=== PATIENT | female | born 1965 | race Caucasian/White ===

== ENCOUNTER 2018-03-31 08:03 | Inpatient (IN) | payer MEDICAID ==
[~2018-03-31] VITALS: Ht 167.6 cm; Wt 73.0 kg
[2018-03-31] VITALS (28 sets, daily range): BP systolic 65–124; BP diastolic 33–91
[~2018-03-31 08:03] MED LIST: BACTRIM DS TAB1 EAC1 PO; BOOST PLUS237 ML PO; DAKIN'S473 M1 TOP; DIFLUCAN200 MG PO; HEPARIN 1,100 UNIT/1 SUBQ; HEPARIN SO5000 UNIT2 SUBQ; LIORESAL 10 MG10 MG PO; OMEGA-31000 M1 PO; ORAZINC220 MG PO; PREMARIN0.3 MG PO; PRENATAL VITAM1 EACH PO; PROTONIX40 M1 PO; PROZAC20 MG PO; PROZAC40 MG PO; REGLAN 10 MG TA10 MG PO; RENAGEL800 MG PO; ROCEPHIN 11 GM/1001 IV; SILVADENE20 GM TOP; TYLENOL325 MG PO; VANCOMYCIN1.25 GM/21 IVPB; VITAMINC500 PO; ZINC SULFATE 2220 M1 PO; ZOSYN 3.373.375 GM/1 PO; ZOSYN 3.3753.375 GM IVPB
[2018-03-31 08:25] LABS: URINE BILIRUBIN NEGATIVE (Negative); URINE BLOOD 1+ (Negative); URINE CLARITY CLOUDY; URINE COLOR YELLOW; URINE GLUCOSE-RANDOM NEGATIVE (Negative); URINE KETONES NEGATIVE (Negative); URINE LEUKOCYTES-REFLEX 3+ (Negative); URINE NITRITE-REFLEX NEGATIVE (Negative); URINE PROTEIN 1+ (Negative); URINE UROBILINOGEN 0.2 E.U./dl (0.2-1.0)
[2018-03-31] MEDS ORDERED: LIORESAL 10 MG10 MG PO (08:25)
[2018-03-31] MEDS ORDERED: LASIX 20 MG TAB20 MG PO (08:26)
[2018-03-31] MEDS ORDERED: SEROQUEL 25 MG25 M1 PO (08:26)
[2018-03-31 08:32] LABS: BACTERIA-REFLEX >30 Many /HPF (None Seen)
[2018-03-31 08:33] LABS: HYALINE CASTS 0-3 Few /LPF (None Seen); URINE WBC-REFLEX >25 Many /HPF (0-5); WBC CLUMPS Moderate (None Seen)
[2018-03-31 08:34] LABS: SQUAMOUS 0-3 Few /LPF (0-3)
[2018-03-31 08:35] LABS: CRYSTALS None Seen /LPF (None Seen); MUCUS None Seen strn/LPF (None Seen); URINE RBC 0-2 Rare /HPF (0-2)
[2018-03-31 08:57] LABS: HEMOGLOBIN 13.3 gm/dL (12.0-15.0); MCH 27.9 pg (26.0-34.0); MCHC 30.2 g/dL (28.0-37.0); MCV 92.4 fL (80.0-100.0); MPV 11.8 fl. (7.2-11.1); NUCLEATED RBCS 0 /100WBC; RBC 4.77 mil/uL (4.20-5.00); RDW-CV 16.5 % (10.5-14.5)
[2018-03-31 09:00] LABS: INR 1.3; PROTIME 12.7 Seconds (9.20-11.50)
[2018-03-31 09:04] LABS: ANION GAP 11 mmol/L (7-16); BUN 68 mg/dL (7-18); CHLORIDE 129 mmol/L (98-107); CO2 26 mmol/L (21-32); CREATININE 2.7 mg/dL (0.6-1.3); GLUCOSE 140 mg/dL (70-99); POTASSIUM 3.4 mmol/L (3.5-5.1)
[2018-03-31 09:04] LABS: BE -1.9 mmol/L (-2 to +3); HCO3 21.3 mmol/L (22.0-26.0); PO2 66.4 mmHg (75.0-100.0); pH 7.442 (7.340-7.450)
[2018-03-31 09:08] LABS: SODIUM 166 mmol/L (136-145)
[2018-03-31 09:20] LABS: ALKALINE PHOSPHATASE 159 U/L (46-116); LIPASE 352 U/L (73-393); NT-PRO BRAIN NAT PEPTIDE 561 pg/mL (<300); SGOT 51 U/L (15-37); SGPT 77 U/L (30-65); TOTAL BILIRUBIN 1.1 mg/dL (<0.1-1.0); TOTAL PROTEIN 8.1 g/dL (6.4-8.2); TROPONIN-I LEVEL <0.06 ng/mL (<0.06)
[2018-03-31 10:05] LABS: ABSOLUTE EOSINOPHILS 0.4 thou/uL (0.0-0.7); ABSOLUTE LYMPHOCYTES 4.4 thou/uL (0.8-5.3); ABSOLUTE MONOCYTES 0.6 thou/uL (0.0-1.2); ABSOLUTE NEUTROPHILS 13.7 thou/uL (1.6-8.1)
[2018-03-31 10:10] LABS: ANISOCYTOSIS Occasional; PLATELET ESTIMATE ADEQUATE
[2018-03-31 10:13] LABS: CLUMPED PLTS RARE; PLATELET COUNT* 182 thou/uL (150-400)
[2018-03-31 12:14] LABS: MAGNESIUM 2.4 mg/dL (1.8-2.4); PHOSPHORUS* 3.7 mg/dL (2.5-4.9)
[2018-04-01] VITALS (18 sets, daily range): BP systolic 87–119; BP diastolic 42–74
[2018-04-01 04:25] LABS: ABSOLUTE BASOPHILS 0.1 thou/uL (0.0-0.2); ABSOLUTE EOSINOPHILS 0.3 thou/uL (0.0-0.7); ABSOLUTE LYMPHOCYTES 4.1 thou/uL (0.8-5.3); ABSOLUTE MONOCYTES 0.7 thou/uL (0.0-1.2); ABSOLUTE NEUTROPHILS 15.2 thou/uL (1.6-8.1); BASOPHILS 0.4 %; EOSINOPHILS 1.6 %; HEMATOCRIT 32.3 % (37.0-47.0); LYMPHOCYTES 20.1 %; MCH 28.2 pg (26.0-34.0); MONOCYTES 3.2 %; MPV 11.2 fl. (7.2-11.1); NUCLEATED RBCS 0 /100WBC; PLATELET COUNT* 151 thou/uL (150-400); POLYS 74.7 %; RBC 3.55 mil/uL (4.20-5.00); RDW-CV 16.3 % (10.5-14.5); WBC 20.4 thou/uL (4.0-11.0)
[2018-04-01 04:34] LABS: CALCIUM 7.7 mg/dL (8.5-10.1); CREATININE 2.1 mg/dL (0.6-1.3)
[2018-04-01 04:40] LABS: CALCIUM 7.7 mg/dL (8.5-10.1); CREATININE 2.1 mg/dL (0.6-1.3)
[2018-04-01 05:01] LABS: ALBUMIN 1.4 g/dL (3.4-5.0); MAGNESIUM 1.7 mg/dL (1.8-2.4); PHOSPHORUS* 2.3 mg/dL (2.5-4.9)
--- NOTE | 2018-04-01 10:24 | EKG ---
[place] [address] ELECTROCARDIOGRAM REPORT Name: PADMINIJAIME Room: [address] ADM IN .R.#: [id number] Admission: 03/31/18 Attend Phys: Jose Cheng MD Discharge: Date of : 67 Report #: [id number] THIS REPORT FOR: //name// [facility] ED Test Date: 2018-03-31 Test Time: 08:49:46 Pat Name: JAIME WASHINGTON Department: Room: [facility] Gender: Rn Immunology: Corbin FERRER : 1965 Requested By: Justice Mason Order Number: [id number] MD: Rodrick Ren Measurements Intervals [place] Rate: 97 P: 28 ME: 86 QRS: 26 QRSD: 90 T: QT: 364 QTc: 463 Interpretive Statements Sinus rhythm Short ME interval Consider RVH or PMI w/ secondary repol abnrm Repol abnrm, severe global ischemia (LM/MVD) Compared to ECG 06/27/2014 21:27:32 Possible ischemia now present Electronically Signed On 04-01-2018 10:24:07 CDT by Rodrick Ren [email or web address] <ELECTRONICALLY SIGNED> By: Rodrick Ren MD, FAC 04/01/18 1024 0849 0849 Rodrick Ren MD, [facility] /EPI
[2018-04-02] VITALS (8 sets, daily range): BP systolic 79–119; BP diastolic 52–69
[2018-04-02 04:44] LABS: ABSOLUTE EOSINOPHILS 0.4 thou/uL (0.0-0.7); ABSOLUTE LYMPHOCYTES 3.2 thou/uL (0.8-5.3); ABSOLUTE MONOCYTES 0.3 thou/uL (0.0-1.2); ABSOLUTE NEUTROPHILS 8.6 thou/uL (1.6-8.1); BASOPHILS 0.4 %; EOSINOPHILS 3.5 %; HEMATOCRIT 28.8 % (37.0-47.0); HEMOGLOBIN 9.2 gm/dL (12.0-15.0); LYMPHOCYTES 25.1 %; MCH 28.7 pg (26.0-34.0); MCHC 31.8 g/dL (28.0-37.0); MCV 90.3 fL (80.0-100.0); MONOCYTES 2.6 %; MPV 11.1 fl. (7.2-11.1); NUCLEATED RBCS 0 /100WBC; PLATELET COUNT* 114 thou/uL (150-400); POLYS 68.4 %; RBC 3.19 mil/uL (4.20-5.00); RDW-CV 16.1 % (10.5-14.5); WBC 12.6 thou/uL (4.0-11.0)
[2018-04-02 05:05] LABS: ALBUMIN 1.3 g/dL (3.4-5.0); CREATININE 1.9 mg/dL (0.6-1.3); POTASSIUM 3.1 mmol/L (3.5-5.1); TOTAL BILIRUBIN 0.9 mg/dL (<0.1-1.0)
[2018-04-02 05:41] LABS: PREALBUMIN 11.7 mg/dL (18.0-35.7)
[2018-04-02 05:42] LABS: ALBUMIN 1.3 g/dL (3.4-5.0); CALCIUM 7.6 mg/dL (8.5-10.1); CREATININE 1.8 mg/dL (0.6-1.3); MAGNESIUM 1.7 mg/dL (1.8-2.4); PHOSPHORUS* 3.1 mg/dL (2.5-4.9); POTASSIUM 3.2 mmol/L (3.5-5.1)
[2018-04-03] VITALS (8 sets, daily range): BP systolic 82–100; BP diastolic 51–65
[2018-04-03 06:24] LABS: ABSOLUTE EOSINOPHILS 0.4 thou/uL (0.0-0.7); ABSOLUTE LYMPHOCYTES 2.6 thou/uL (0.8-5.3); ABSOLUTE MONOCYTES 0.4 thou/uL (0.0-1.2); ABSOLUTE NEUTROPHILS 7.3 thou/uL (1.6-8.1); BASOPHILS 0.4 %; EOSINOPHILS 3.9 %; HEMATOCRIT 31.4 % (37.0-47.0); LYMPHOCYTES 24.5 %; MCH 28.7 pg (26.0-34.0); MCHC 31.9 g/dL (28.0-37.0); MCV 89.7 fL (80.0-100.0); MONOCYTES 3.8 %; MPV 11.3 fl. (7.2-11.1); NUCLEATED RBCS 0 /100WBC; PLATELET COUNT* 134 thou/uL (150-400); POLYS 67.4 %; RDW-CV 16.2 % (10.5-14.5); WBC 10.8 thou/uL (4.0-11.0)
[2018-04-03 06:31] LABS: PREALBUMIN 11.7 mg/dL (18.0-35.7)
[2018-04-03 06:32] LABS: ALBUMIN 1.3 g/dL (3.4-5.0); CALCIUM 8.1 mg/dL (8.5-10.1); CREATININE 1.8 mg/dL (0.6-1.3); POTASSIUM 3.9 mmol/L (3.5-5.1); TOTAL BILIRUBIN 0.9 mg/dL (<0.1-1.0); TOTAL PROTEIN 6.4 g/dL (6.4-8.2)
[2018-04-04 00:08] VITALS: BP 142/66
[2018-04-04 03:52] LABS: ABSOLUTE BASOPHILS 0.1 thou/uL (0.0-0.2); ABSOLUTE EOSINOPHILS 0.5 thou/uL (0.0-0.7); ABSOLUTE LYMPHOCYTES 3.3 thou/uL (0.8-5.3); ABSOLUTE MONOCYTES 0.5 thou/uL (0.0-1.2); ABSOLUTE NEUTROPHILS 8.6 thou/uL (1.6-8.1); BASOPHILS 0.7 %; HEMATOCRIT 29.5 % (37.0-47.0); HEMOGLOBIN 9.4 gm/dL (12.0-15.0); LYMPHOCYTES 25.6 %; MCH 28.4 pg (26.0-34.0); MCHC 31.8 g/dL (28.0-37.0); MCV 89.4 fL (80.0-100.0); MONOCYTES 3.8 %; MPV 10.8 fl. (7.2-11.1); NUCLEATED RBCS 0 /100WBC; PLATELET COUNT* 167 thou/uL (150-400); POLYS 65.9 %; RDW-CV 15.9 % (10.5-14.5)
[2018-04-04 04:16] VITALS: BP 90/57
[2018-04-04 04:26] LABS: ALBUMIN 1.3 g/dL (3.4-5.0); CALCIUM 7.6 mg/dL (8.5-10.1); POTASSIUM 3.3 mmol/L (3.5-5.1); TOTAL BILIRUBIN 0.7 mg/dL (<0.1-1.0); TOTAL PROTEIN 6.4 g/dL (6.4-8.2)
[2018-04-04 08:00] VITALS: BP 98/64
[2018-04-04 16:11] VITALS: BP 80/34
[2018-04-04 20:17] VITALS: BP 96/54
[2018-04-05] VITALS (7 sets, daily range): BP systolic 91–121; BP diastolic 44–64
[2018-04-05 04:42] LABS: HEMATOCRIT 27.4 % (37.0-47.0); HEMOGLOBIN 8.8 gm/dL (12.0-15.0); MCH 28.8 pg (26.0-34.0); MCHC 32.1 g/dL (28.0-37.0); MCV 89.9 fL (80.0-100.0); MPV 10.4 fl. (7.2-11.1); NUCLEATED RBCS 0 /100WBC; PLATELET COUNT* 161 thou/uL (150-400); RBC 3.05 mil/uL (4.20-5.00); RDW-CV 16.9 % (10.5-14.5); WBC 10.9 thou/uL (4.0-11.0)
[2018-04-05 05:00] LABS: PREALBUMIN 12.2 mg/dL (18.0-35.7)
[2018-04-05 05:07] LABS: ALBUMIN 1.2 g/dL (3.4-5.0); CALCIUM 7.7 mg/dL (8.5-10.1); CREATININE 1.8 mg/dL (0.6-1.3); POTASSIUM 3.3 mmol/L (3.5-5.1); TOTAL BILIRUBIN 0.4 mg/dL (<0.1-1.0)
[2018-04-05 05:57] LABS: ABSOLUTE EOSINOPHILS 0.2 thou/uL (0.0-0.7); ABSOLUTE LYMPHOCYTES 4.4 thou/uL (0.8-5.3); ABSOLUTE MONOCYTES 0.1 thou/uL (0.0-1.2); ABSOLUTE NEUTROPHILS 6.2 thou/uL (1.6-8.1); ANISOCYTOSIS 1+; PLATELET ESTIMATE ADEQUATE; POIKILOCYTOSIS 1+
[2018-04-06 03:55] VITALS: BP 110/67
[2018-04-06 04:37] LABS: HEMATOCRIT 27.7 % (37.0-47.0); HEMOGLOBIN 8.7 gm/dL (12.0-15.0); MCH 28.3 pg (26.0-34.0); MCHC 31.3 g/dL (28.0-37.0); MCV 90.3 fL (80.0-100.0); MPV 10.4 fl. (7.2-11.1); NUCLEATED RBCS 0 /100WBC; PLATELET COUNT* 195 thou/uL (150-400); RBC 3.07 mil/uL (4.20-5.00); RDW-CV 16.6 % (10.5-14.5); WBC 12.7 thou/uL (4.0-11.0)
[2018-04-06 04:55] LABS: ALBUMIN 1.3 g/dL (3.4-5.0); CALCIUM 7.4 mg/dL (8.5-10.1); CREATININE 1.7 mg/dL (0.6-1.3); POTASSIUM 3.7 mmol/L (3.5-5.1); TOTAL BILIRUBIN 0.4 mg/dL (<0.1-1.0); TOTAL PROTEIN 6.3 g/dL (6.4-8.2)
[2018-04-06 06:31] LABS: ABSOLUTE EOSINOPHILS 0.8 thou/uL (0.0-0.7); ABSOLUTE MONOCYTES 0.8 thou/uL (0.0-1.2); ABSOLUTE NEUTROPHILS 6.2 thou/uL (1.6-8.1); ATYPICAL LYMPHS 3 %; PLATELET ESTIMATE ADEQUATE
[2018-04-06 06:32] LABS: GIANT PLATELETS RARE
[2018-04-06 06:37] LABS: LARGE PLATELETS RARE
[2018-04-06 08:00] VITALS: BP 105/64
[2018-04-06 20:00] VITALS: BP 105/64
[2018-04-07] VITALS: BP 140/67
[2018-04-07 04:00] VITALS: BP 95/63
[2018-04-07 05:12] LABS: ABSOLUTE BASOPHILS 0.1 thou/uL (0.0-0.2); ABSOLUTE EOSINOPHILS 0.4 thou/uL (0.0-0.7); ABSOLUTE LYMPHOCYTES 4.8 thou/uL (0.8-5.3); ABSOLUTE MONOCYTES 0.8 thou/uL (0.0-1.2); BASOPHILS 0.8 %; EOSINOPHILS 3.5 %; HEMATOCRIT 27.4 % (37.0-47.0); HEMOGLOBIN 8.7 gm/dL (12.0-15.0); LYMPHOCYTES 39.8 %; MCH 28.6 pg (26.0-34.0); MCHC 31.7 g/dL (28.0-37.0); MCV 90.3 fL (80.0-100.0); MONOCYTES 6.6 %; NUCLEATED RBCS 0 /100WBC; PLATELET COUNT* 239 thou/uL (150-400); POLYS 49.3 %; RBC 3.03 mil/uL (4.20-5.00); RDW-CV 16.9 % (10.5-14.5); WBC 12.1 thou/uL (4.0-11.0)
[2018-04-07 05:28] LABS: ALBUMIN 1.3 g/dL (3.4-5.0); CALCIUM 7.6 mg/dL (8.5-10.1); CREATININE 1.6 mg/dL (0.6-1.3); MAGNESIUM 1.9 mg/dL (1.8-2.4); POTASSIUM 3.4 mmol/L (3.5-5.1); TOTAL BILIRUBIN 0.3 mg/dL (<0.1-1.0); TOTAL PROTEIN 6.3 g/dL (6.4-8.2)
[2018-04-07 08:00] VITALS: BP 100/53
[2018-04-07 17:02] VITALS: BP 107/56
[2018-04-07 20:00] VITALS: BP 132/65
[2018-04-08] VITALS: BP 96/48
[2018-04-08 04:00] VITALS: BP 101/53
[2018-04-08 05:19] LABS: HEMATOCRIT 29.7 % (37.0-47.0); HEMOGLOBIN 9.4 gm/dL (12.0-15.0); MCH 28.6 pg (26.0-34.0); MCHC 31.5 g/dL (28.0-37.0); MPV 9.6 fl. (7.2-11.1); RBC 3.27 mil/uL (4.20-5.00); RDW-CV 17.1 % (10.5-14.5); WBC 12.5 thou/uL (4.0-11.0)
[2018-04-08 05:36] LABS: CALCIUM 8.1 mg/dL (8.5-10.1); MAGNESIUM 2.2 mg/dL (1.8-2.4); POTASSIUM 3.9 mmol/L (3.5-5.1)
[2018-04-08 08:40] VITALS: BP 109/66
[2018-04-08 12:00] VITALS: BP 97/66
--- NOTE | 2018-04-08 14:47 | CON ---
[address] [address] CONSULTATION Name: JAIME WASHINGTON Room: [address] IN M.R.#: [id number] Admission: 03/31/18 Attend Phys: Jose Cheng MD Discharge: Date of : 67 Report #: [id number] THIS REPORT FOR: //name// CC: Jose Young DATE OF SERVICE: 03/31/2018 REASON FOR CONSULTATION: I was asked to evaluate concerning sepsis. HISTORY OF PRESENT ILLNESS: The patient was a 52-year-old with underlying MS longstanding who is cared for by her family who notes that she is essentially bedbound. She does get up for several hours a day into a recliner chair. She is able to speak some. Otherwise, is very debilitated. Approximately 3 weeks ago, developed a decubitus to her left ischium. This was treated as an outpatient with local wound care and oral antibiotic therapy. She finished this last week. Three days ago, had difficulty swallowing. She choked on some liquids. Her then started using Thick-It in her fluids. Last 48 hours, she has had progressive decline in her mental status. She has had low-grade fever. No definite cough or sputum production. No pleuritic chest pain. No nausea or vomiting. She has been constipated and he has given her some laxatives. She has a suprapubic catheter and has had decreased urine output. She continues with a wound VAC to her left ischium. No other skin lesions or rashes. REVIEW OF SYSTEMS: A 10-point review of systems is otherwise unremarkable as history was taken from her . ALLERGIES: None known. MEDICATIONS: As noted on her MAR which was reviewed. OUTPATIENT MEDICATIONS: Included Tylenol, baclofen, Seroquel, Lasix, Renagel, vitamin C, vitamins, omega 3 fatty acid, zinc and Prozac. PAST MEDICAL HISTORY: MS for over 30 years, , multiple pressure wounds, suprapubic catheter, urinary tract infection, nephrolithiasis, chronic kidney disease and pneumonia. FAMILY HISTORY: Noncontributory. SOCIAL HISTORY: Past smoker, no significant alcohol intake. Resides at home with her family. PHYSICAL EXAMINATION: VITAL SIGNS: Maximum temperature is 101.3 degrees, currently afebrile, [place] [address] CONSULTATION Name: JAIME WASHINGTON Room: [address]#: [id number] Admission: 03/31/18 Attend Phys: Jose Cheng MD Discharge: Date of : 67 Report #: [id number], blood pressure 117/73 with a MAP of 81, respiratory rate in the low 20s and CVP 8 on Levophed drip. IV fluids in process on 2 liters of oxygen per nasal cannula. GENERAL: The patient was awake, but unable to communicate. She had generalized weakness having to be rolled over in bed. No significant hand rosin barrel filler or movement of her lower extremities. She had increased muscle tone. HEENT: Cranial nerves, the patient was unable to cooperate. Pupils were equal, round and reactive to light. Mouth was unremarkable. NECK: Without swelling or thyromegaly. No masses. Stiffness mostly in correlation with her increased muscle tone. Left IJ catheter unremarkable. CHEST: Right chest with coarse breath sounds mid upper posterior chest. No consolidation or rub. HEART: Regular without murmur, gallop or rub. BREASTS: Unremarkable. No peripheral adenopathy. ABDOMEN: Soft, nontender, no hepatosplenomegaly or mass. Suprapubic catheter site was unremarkable. EXTREMITIES: Left ischial wound stage 4 with palpable bone and several centimeters of tunneling. No surrounding cellulitis. Eschar wounds to both heels. No surrounding erythema or fluctuance. These are very dry. LABORATORY STUDIES: Ultrasound of the kidneys showed right-sided nephrolithiasis without hydronephrosis and cholelithiasis. Chest x-ray viewed and agreed with the impression noting patchy infiltrates, right upper lobe region and basilar atelectasis. Blood cultures are pending. Sputum culture is pending. Urine culture is pending. Sodium 163, potassium 3.4, bicarbonate 26, creatinine 2.7, AST 51, lipase 352, alkaline phosphatase 159, ALT 77 and albumin 2. Lactate 2.3. BNP 561. INR 1.3. Hemoglobin 13.3, WBC 19, platelet count and 182,000. MRSA screen is pending. Urinalysis: Many wbc's and many bacteria. ABG on 2 liters pO2 of 66, pCO2 of 32 and pH 7.4. IMPRESSION: 1. Septic shock in the setting of advanced multiple sclerosis. Sources to consider include urinary tract complicated by chronic suprapubic catheter versus aspiration pneumonia versus left ischial wound infection. On examination does not appear that she has a soft tissue abscess. I was able to palpate the base of the wound. 2. MS. 3. Decubitus ulcer. 4. Acute on chronic kidney disease. 5. Hypernatremia. 6. Leukocytosis. RECOMMENDATION: We will continue with broad antibiotic coverage to cover aspiration pneumonia, left ischial wound infection and urinary tract infection. Review of her previous culture data over the last 5 years, it is evident that she has had Pseudomonas aeruginosa previously. This was resistant to [facility] [address] [place] [address] CONSULTATION Name: JAIME WASHINGTON Room: [address] IN .R.#: [id number] Admission: 03/31/18 Attend Phys: Jose Cheng MD Discharge: Date of : 67 Report #: [id number] quinolones. We will await culture results. Follow serial chest x-rays. Image her pelvis to rule out deep seated soft tissue abscess. Culture the base of the ischial wound. Replace free water to bring down her sodium. Follow renal function closely. ICU monitoring with pressors as necessary. <ELECTRONICALLY SIGNED> By: Yannick Addison MD 04/08/18 1447 1738 [id number] Addison MD /nt
[2018-04-08 16:00] VITALS: BP 112/78
[2018-04-08 23:39] VITALS: BP 102/57
[2018-04-09 01:14] VITALS: BP 121/73
[2018-04-09 04:00] VITALS: BP 125/69
[2018-04-09 09:15] VITALS: BP 102/52
[2018-04-09 12:00] VITALS: BP 97/57
[2018-04-09 20:00] VITALS: BP 120/69
[2018-04-10 00:10] VITALS: BP 100/55
[2018-04-10 04:06] VITALS: BP 104/60
[2018-04-10 05:49] LABS: ABSOLUTE BASOPHILS 0.1 thou/uL (0.0-0.2); ABSOLUTE EOSINOPHILS 0.4 thou/uL (0.0-0.7); ABSOLUTE LYMPHOCYTES 4.4 thou/uL (0.8-5.3); ABSOLUTE MONOCYTES 0.7 thou/uL (0.0-1.2); ABSOLUTE NEUTROPHILS 7.3 thou/uL (1.6-8.1); BASOPHILS 0.9 %; EOSINOPHILS 2.7 %; HEMATOCRIT 27.1 % (37.0-47.0); HEMOGLOBIN 8.5 gm/dL (12.0-15.0); LYMPHOCYTES 34.3 %; MCH 28.6 pg (26.0-34.0); MCHC 31.2 g/dL (28.0-37.0); MCV 91.7 fL (80.0-100.0); MONOCYTES 5.5 %; MPV 9.1 fl. (7.2-11.1); NUCLEATED RBCS 0 /100WBC; PLATELET COUNT* 326 thou/uL (150-400); POLYS 56.6 %; RBC 2.96 mil/uL (4.20-5.00); RDW-CV 18.5 % (10.5-14.5); WBC 12.9 thou/uL (4.0-11.0)
[2018-04-10 06:11] LABS: ALBUMIN 1.5 g/dL (3.4-5.0); CALCIUM 7.5 mg/dL (8.5-10.1); CREATININE 1.6 mg/dL (0.6-1.3); POTASSIUM 3.6 mmol/L (3.5-5.1); TOTAL BILIRUBIN 0.3 mg/dL (<0.1-1.0); TOTAL PROTEIN 6.4 g/dL (6.4-8.2)
[2018-04-10 08:20] VITALS: BP 95/58
[2018-04-10] MEDS ORDERED: MINOCIN100 MG PO (15:10)
[2018-04-10 15:11] VITALS: BP 104/60
--- NOTE | 2018-04-10 15:52 | CON ---
[address] [address] CONSULTATION Name: JAIME WASHINGTON Room: [address] IN M.R.#: [id number] Admission: 03/31/18 Attend Phys: Jose Cheng MD Discharge: Date of : 67 Report #: [id number] THIS REPORT FOR: //name// CC: Jose Young DATE OF SERVICE: 03/31/2018 Nephrology Consultation CONSULTING PHYSICIAN: Jose Cheng MD REASON FOR CONSULTATION: Acute kidney injury. HISTORY OF PRESENT ILLNESS: A 52-year-old female with no outpatient big data lead who was admitted with sepsis. She has multiple sclerosis for over 30 years. She is paraplegic and bed bound. She has limited mental capacity, but as per her , she has good days and bad days and is able to answer yes and no questions. She has had significantly decreased intake the past few days. was trying to hydrate her, but she was not improving. She does have a suprapubic catheter, which is changed monthly and there is some concern for possible aspiration pneumonia as well. She was hypotensive and has been admitted to the ICU, has been given several fluid boluses and vasopressors have been ordered, but not yet started. She does not have an outpatient big data lead. REVIEW OF SYSTEMS: Constitutional, psych, heme, eyes, ENT, respiratory, cardiac, GI, , and endocrine all negative except as documented above and as best can be ascertained. PAST MEDICAL HISTORY: Multiple sclerosis for 30 years. Suprapubic catheter for the past 7 years, history of acute kidney injury in the past, hospitalized at [facility]. CURRENT MEDICATIONS: Reviewed. SOCIAL HISTORY: She is . Former smoker. FAMILY HISTORY: Not pertinent in this 82-year-old female. PHYSICAL EXAMINATION: VITAL SIGNS: Blood pressure is 101/69, pulse 86, respirations 23, temperature 36.5. GENERAL: No acute distress. EYES: Closed. EARS: [place] [address] CONSULTATION Name: JAIME WASHINGTON Room: [address] IN ..#: [id number] Admission: 03/31/18 Attend Phys: Jose Cheng MD Discharge: Date of : 67 Report #: [id number] CARDIOVASCULAR: Regular rate. LUNGS: No crackles. ABDOMEN: Soft. LYMPHATICS: No significant peripheral pitting edema. NEUROLOGIC: Somnolent. LABORATORY DATA: White cell count 19, hemoglobin 13.3, platelets 182. Sodium is 166, potassium 3.4, chloride 129, carbon dioxide 26, BUN 60, creatinine 2.7, glucose 140, calcium 9. CK was 71. Albumin 2.0. White cell count 19. ASSESSMENT: 1. Acute kidney injury secondary to volume depletion while also on Lasix in 2013, creatinine was 1.6. She may have underlying chronic kidney disease, baseline creatinine uncertain. 2. Hypernatremia, secondary to dehydration. 3. Hypotension, secondary to sepsis. 4. Urinary tract infection, possible aspiration pneumonia with history of suprapubic catheter. 5. Hypokalemia. 6. Lactic acidosis. 7. Hypoalbuminemia with an albumin of 2. 8. Multiple sclerosis for over 30 years. 9. Paraplegia. 10. Possible secondary hyperparathyroidism. She is on sevelamer managed by her primary physician as an outpatient. PLAN: 1. Check renal ultrasound. 2. Monitor Is and Os. 3. Caution vancomycin use in setting of renal insufficiency. 4. Vasopressors have been ordered as needed, as well as empiric antibiotics. 5. We will order D5W and repeat sodium checks with parameters to call. 6. Replace potassium. 7. Suprapubic catheter is changed monthly. 8. Check labs again in the a.m. Thank you for requesting my opinion in the care and management of this patient. <ELECTRONICALLY SIGNED> By: Hill Arellano MD 04/10/18 1552 1330 [id number] Arellano MD /nt
[2018-04-10 17:30] VITALS: BP 104/60
--- NOTE | 2018-04-19 17:34 | CON ---
[address] [address] CONSULTATION Name: JAIME WASHINGTON Room: [address] IN M.R.#: [id number] Admission: 03/31/18 Attend Phys: Jose Cheng MD Discharge: 04/10/18 Date of : 67 Report #: [id number] THIS REPORT FOR: //name// CC: Jose Victoria Young DICTATED BY: Viv MORELOS DATE OF SERVICE: 04/02/2018 This Viv Luna [facility] dictating in collaboration with Dr. Hieu Nichole. REASON FOR CONSULTATION: Left sacral wound. HISTORY OF PRESENT ILLNESS: The patient is a 52-year-old female who is known to our service with a history of sacral ulcers. She has advanced multiple sclerosis, is paraplegic and bedbound. She previously followed with Dr. Hoyt in the [place] wound center for her sacral wounds. Due to her immobility and difficulty coming to the wound center, her has been providing care for her over the last couple of years. He has been providing local wound care with wound VAC therapy. She was able to heal her previous sacral wounds and developed her current wound more recently. Her had started using the wound VAC again at home. She was admitted to the hospital this admission with sepsis felt to be from possible aspiration pneumonia as well as UTI. We have been asked to evaluate the patient for ongoing management of her sacral wound. She is currently pretty much nonverbal, although she does moan some with moving in bed. PAST MEDICAL HISTORY: 1. Multiple sclerosis. 2. History of sacral wounds. 3. History of nephrolithiasis. 4. History of chronic kidney disease. 5. History of pneumonia. PAST SURGICAL HISTORY: 1. section. 2. Multiple wound debridements. 3. Suprapubic catheter placement. FAMILY HISTORY: Noncontributory. ALLERGIES: No known drug allergies. HOME MEDICATIONS: Please [place] [address] CONSULTATION Name: JAIME WASHINGTON Room: [address]#: [id number] Admission: 03/31/18 Attend Phys: Jose Cheng MD Discharge: 04/10/18 Date of : 67 Report #: [id number] SOCIAL HISTORY: She is a former smoker. She lives at home with her family. REVIEW OF SYSTEMS: A 12-point review of systems has been reviewed, but is somewhat difficult to obtain as she is essentially nonverbal. PHYSICAL EXAMINATION: VITAL SIGNS: Temperature 37.2, heart rate 90, respiratory rate 24, blood pressure is 105/65, oxygen saturation is 98% on room air. GENERAL: She is alert, orientation is difficult to evaluate. She is in no acute distress. HEENT: Head is normocephalic, atraumatic. NECK: Supple, without jugular venous distention or carotid bruit. She has a central line in the left neck. HEART: Regular rate and rhythm. CHEST: Lungs are clear to auscultation bilaterally anteriorly. ABDOMEN: Soft, positive bowel sounds. EXTREMITIES: Palpable bilateral radial, femoral and dorsalis pedis pulses. She has a small wound on the lateral aspect of the right foot with dry eschar in the majority of the wound. There is also another wound on the left heel again with dry eschar. She has some contracture to her knees. SKIN: She has a large sacral ulcer on the left that tunnels approximately 4 cm. This does appear to probe to bone. The wound bed is quite clean and pink, no significant periwound erythema, no significant active drainage noted or odor. LABORATORY DATA: Hemoglobin 9.2, hematocrit 28.8, white blood cell count 12.6, platelets 114. Sodium 156, potassium 3.0, chloride 121, CO2 of 19, BUN 29, creatinine 1.8, glucose is 125. ASSESSMENT AND PLAN: 1. Left sacral decubitus ulcer, likely pressure related secondary to her immobility. Continue local wound care with Aquacel Ag today. We will ask Dr. Hoyt to evaluate her wound tomorrow, likely we will resume wound VAC therapy. Continue to reposition the patient frequently to avoid pressure on her wound. Betadine paint has been ordered for her bilateral foot wounds, she has PRAFO boot in place. 2. Sepsis. Infectious disease is following, continue antibiotic therapy. 3. Acute on chronic renal insufficiency. Nephrology is currently following. We thank you for the opportunity to participate in the care of the patient. Please feel free to contact our office with any questions or concerns. <ELECTRONICALLY SIGNED> By: Luc Hoyt DO 04/19/18 1734 1730 0329Hieu Nichole MD /cherry
== END 2018-04-10 19:10 | disposition home health service (06) | DRG 871 ==
LOC: M.ERS 08:03 → M.ICU 09:28 → M.TBA-ER 09:28 → M.ICU 10:46 → M.3W 04-03 18:12
PROVIDERS: Family Medicine; Internal Medicine Nephrology; ADMIT Internal Medicine
PROC: 02HV33Z Insertion of Infusion Device into Superior Vena Cava, Percutaneous Approach (ICD-10-PCS; principal; 2018-03-31)
DX: A41.9 Sepsis, unspecified organism (principal); L89.324 Pressure ulcer of left buttock, stage 4; J18.1 Lobar pneumonia, unspecified organism; R65.21 Severe sepsis with septic shock; N17.0 Acute kidney failure with tubular necrosis; G93.40 Encephalopathy, unspecified; E43 Unspecified severe protein-calorie malnutrition; E87.0 Hyperosmolality and hypernatremia; N39.0 Urinary tract infection, site not specified; E87.2 Acidosis; G82.20 Paraplegia, unspecified; N25.81 Secondary hyperparathyroidism of renal origin; G35 Multiple sclerosis; N20.0 Calculus of kidney; E86.0 Dehydration; N18.3 Chronic kidney disease, stage 3 (moderate); D64.9 Anemia, unspecified; B95.62 Methicillin resistant Staphylococcus aureus infection as the cause of diseases classified elsewhere; E66.9 Obesity, unspecified; B96.20 Unspecified Escherichia coli [E. coli] as the cause of diseases classified elsewhere; B96.5 Pseudomonas (aeruginosa) (mallei) (pseudomallei) as the cause of diseases classified elsewhere; Z16.19 Resistance to other specified beta lactam antibiotics; E87.6 Hypokalemia; E88.09 Other disorders of plasma-protein metabolism, not elsewhere classified; L89.159 Pressure ulcer of sacral region, unspecified stage; Z87.891 Personal history of nicotine dependence; Z68.26 Body mass index [BMI] 26.0-26.9, adult; Z98.891 History of uterine scar from previous surgery; Z79.899 Other long term (current) drug therapy; Z74.01 Bed confinement status

== ENCOUNTER 2018-05-22 19:33 | Inpatient (IN) | payer MEDICAID ==
[~2018-05-22] VITALS: Ht 167.6 cm; Wt 108.0 kg
[~2018-05-22 19:33] MED LIST changes: +LASIX 20 MG TAB20 MG PO; +MINOCIN100 MG PO; +SEROQUEL 25 MG25 M1 PO
[2018-05-22 19:40] VITALS: BP 128/76
[2018-05-22] MEDS ORDERED: RENAGEL800 MG PO (19:51)
[2018-05-22] MEDS ORDERED: CEFDINIR300 MG PO (19:52)
[2018-05-22 19:58] LABS: HEMATOCRIT 34.5 % (37.0-47.0); HEMOGLOBIN 10.7 gm/dL (12.0-15.0); MCH 27.8 pg (26.0-34.0); MCHC 31.1 g/dL (28.0-37.0); MCV 89.4 fL (80.0-100.0); MPV 9.6 fl. (7.2-11.1); NUCLEATED RBCS 0 /100WBC; PLATELET COUNT* 270 thou/uL (150-400); RBC 3.86 mil/uL (4.20-5.00); RDW-CV 18.5 % (10.5-14.5); WBC 20.5 thou/uL (4.0-11.0)
[2018-05-22 20:08] LABS: ANION GAP 11 mmol/L (7-16); BUN 32 mg/dL (7-18); CALCIUM 8.4 mg/dL (8.5-10.1); CHLORIDE 106 mmol/L (98-107); CO2 22 mmol/L (21-32); CREATININE 1.9 mg/dL (0.6-1.3); GLUCOSE 180 mg/dL (70-99); POTASSIUM 3.9 mmol/L (3.5-5.1); SODIUM 139 mmol/L (136-145)
[2018-05-22 20:10] LABS: INR 1.2; PROTIME 12.5 Seconds (9.20-11.50)
[2018-05-22 20:19] LABS: ALBUMIN 1.7 g/dL (3.4-5.0); ALKALINE PHOSPHATASE 142 U/L (46-116); LIPASE 253 U/L (73-393); NT-PRO BRAIN NAT PEPTIDE 1549 pg/mL (<300); SGOT 26 U/L (15-37); SGPT 19 U/L (30-65); TOTAL BILIRUBIN 0.4 mg/dL (<0.1-1.0); TOTAL PROTEIN 7.9 g/dL (6.4-8.2); TROPONIN-I LEVEL <0.06 ng/mL (<0.06)
[2018-05-22 20:25] LABS: ABSOLUTE LYMPHOCYTES 0.4 thou/uL (0.8-5.3); ABSOLUTE MONOCYTES 0.2 thou/uL (0.0-1.2); ABSOLUTE NEUTROPHILS 19.9 thou/uL (1.6-8.1)
[2018-05-22 20:26] LABS: ANISOCYTOSIS 1+; PLATELET ESTIMATE ADEQUATE
[2018-05-22 21:39] LABS: ESR (SEDRATE) 115 mm/hr (0-30)
[2018-05-22 22:38] VITALS: BP 105/61
[2018-05-22 23:15] VITALS: BP 91/53
[2018-05-22 23:30] VITALS: BP 100/54
[2018-05-22 23:45] VITALS: BP 104/54
[2018-05-23] VITALS (55 sets, daily range): BP systolic 81–144; BP diastolic 49–104
--- NOTE | 2018-05-23 01:03 | NUR ---
RECEIVED REPORT FROM CAMMY MONTE AT 4864. PT ARRIVED TO UNIT AT 2245. SPOUSE AT BEDSIDE. PT PLACED ON SIZING SPRAYER, BP MONITOR Q15 MIN. PT RECEIVING IV FLUIDS, LEVOPHED, AND IV ANTIBIOTICS. WOUND VAC IN PLACE, ALONG WITH MULTIPLE WOUNDS. PICTURES TAKEN, SEE CHART FOR DOCUMENTATION. BARIATRIC BED REQUESTED.
[2018-05-23 04:12] LABS: HEMATOCRIT 31.1 % (37.0-47.0); HEMOGLOBIN 9.8 gm/dL (12.0-15.0); MCH 27.8 pg (26.0-34.0); MCHC 31.4 g/dL (28.0-37.0); MCV 88.7 fL (80.0-100.0); MPV 9.9 fl. (7.2-11.1); RBC 3.51 mil/uL (4.20-5.00); RDW-CV 18.3 % (10.5-14.5)
[2018-05-23 04:28] LABS: ALBUMIN 1.4 g/dL (3.4-5.0); CALCIUM 7.7 mg/dL (8.5-10.1); CREATININE 1.5 mg/dL (0.6-1.3); POTASSIUM 3.6 mmol/L (3.5-5.1); TOTAL BILIRUBIN 0.5 mg/dL (<0.1-1.0); TOTAL PROTEIN 6.9 g/dL (6.4-8.2)
[2018-05-23 05:01] LABS: URINE BILIRUBIN NEGATIVE (Negative); URINE BLOOD 2+ (Negative); URINE CLARITY CLEAR; URINE COLOR YELLOW; URINE GLUCOSE-RANDOM NEGATIVE (Negative); URINE KETONES NEGATIVE (Negative); URINE PROTEIN 1+ (Negative); URINE UROBILINOGEN 0.2 E.U./dl (0.2-1.0)
[2018-05-23 05:03] LABS: URINE LEUKOCYTES-REFLEX 3+ (Negative); URINE NITRITE-REFLEX POSITIVE (Negative)
[2018-05-23 05:25] LABS: BACTERIA-REFLEX >30 Many /HPF (None Seen); CELLULAR CASTS 0-3 Few /LPF (None Seen); COARSE GRANULAR CASTS 0-3 Few /LPF (None Seen); CRYSTALS None Seen /LPF (None Seen); FINE GRANULAR CASTS 0-3 Few /LPF (None Seen); MUCUS 4-6 Moderate strn/LPF (None Seen); SQUAMOUS 0-3 Few /LPF (0-3); TRANSITIONAL EPITHEL CELL 0-3 Few /LPF (None Seen); URINE RBC >20 Many /HPF (0-2); URINE WBC-REFLEX >25 Many /HPF (0-5); WBC CLUMPS Moderate (None Seen); YEAST-REFLEX Present (None Seen)
--- NOTE | 2018-05-23 10:30 | NUR ---
INTERDISICILINARY ROUNDS: PT ADMITTED WITH SEPSIS, HX OF MS. RECENT DC WITH HH. MET WITH PT'S SPOUSE/MARCELINO OUTSIDE THE ROOM. HE DECLINED TO GO TO WAITING ROOM, WANTED TO TALK AT NURSES STATION. ORDER RECEIVED TO ARRANGE FOR LOW AIRLOSS MATTRESS PRIOR TO DC. PT WAS DC'D IN APRIL AND HAD ORDERS AT THAT TIME FOR HOSPITAL BED AND JONATHAN MATTRESS. PT WAS ALSO EVAL'D FOR NEW W/C. PER HE[facility]Y, WAS ARRANGED THRU [facility] AND PRIOR AUTH INITIATED THRU MEDICAID. CALL TO ALEXANDR NAVARRO TO CHECK ON STATUS, SPOKE WITH EFRÍAN. PER EFRAÍN/JUAN [facility], PT'S SPOUSE HAD ASKED FOR A FULL ELECTRIC BED AND [employer] [facility] TOLD HIM THAT MEDICAID WOULD ONLY AUTH A SEMI-ELECTRIC BED. EFRAÍN STATED SHE CONTACTED MEDICAID BUT HAD NOT RECEIVED A RETURN CALL. EQUIPMENT WAS NEVER DELIVERED. EFRAÍN ALSO STATED THAT SHE WAS TOLD BY SPOUSE THAT HE WAS GIONG TO A COMPANY 'CLOSER TO HIS HOME.' [employer] DID STATE THEY COULD STILL PROVIDE EQUIPMENT IF NEEDED AND HAD A PENDING AUTH FROM MEDICAID FOR A NEW W/C FOR PT. WHEN MET WITH PT'S SPOUSE/MARCELINO, HE STATED THAT HE DID TRY TO GET EQUIPMENT THRU [facility] BUT WANTED THE FULL ELECTRIC BED. HE THEN ATTEMPTED TO GO THRU A PREVIOUSLY USED CO, [facility]. [facility], PER SPOUSE, WAS ONLY WILLING TO 'FIX THE CURRENT BED IN HOME.' HE WAS NOT SATISFIED WITH THAT. HE STATED HE PLACED A CALL TO HIS 'STATE REP' AND THEN SPOKE WITH 'CHRISTELLE-WHO IS OVER MEDICAID' AND WAS TOLD THAT EVERYTHING 'WOULD BE COVERED.' AT THIS TIME, HE STATES HE IS WILLING TO TAKE THE NON-ELECTRIC W/C THAT [facility] EVAL'D PT FOR. HE WOULD STILL LIKE THE FULL ELECTRIC BED AND JONATHAN MATTRESS AND WILLING TO ACCEPT EQUIPMENT FROM [employer] IF ABLE TO BE ARRANGED. CALL PLACED TO 'CHRISTELLE' AT [employer] [phone], TO INQUIRE ABOUT STATUS OF EQUIPMENT, HAD TO LEAVE MESSAGE. PER MARCELINO, PT LIVES WITH HIM AND THEIR 11Y/O SON THEY HOMESCHOOL. PT IS DEPENDENT WITH ALL ADLS. SPOUSE DOES MOST OF PT'S CARES. SHE DOES HAVE 6HR/DAY HOMEMAKER SERVICES THRU [employer]. SHE IS FOLLOWED AT HOME BY [facility] AND DR RUSTY LEIJA IS HER PCP. MARCELINO STATES HE MAKES 'HOUSECALLS.' PT HAS W/C, HOSPITAL BED AND LOW AIR LOSS MATTRESS THAT ONLY BLOWS UP '1/2 WAY' PER MARCELINO. PT HAS [employer] WOUND VAC AND SP CATHETER THAT HH MANAGES BUT MARCELINO STATES HE KNOWS HOW TO CHANGE ALSO. PT HAS HAD HH WITH [facility], BUT SPOUSE DISSATISFIED WITH THEIR SERVICE. HE HAS DONE IV ANTIBX IN PAST WELL. PLAN IS FOR PT TO RETURN HOME AT DC WITH SPOUSE AND HH.
--- NOTE | 2018-05-23 11:05 | NUR ---
PT ALER TO PERSON. PT RESPONDS TO YES/NO QUESTIONS. PT DENIES PAIN. PT REPOSITIONED. SKIN DRY. LOTION APPLIED. PANIS RED/YEAST. PANIS CLEANED WITH SOAP, WATER, DRYED. FUNGAL CREAM APPLIED AND INTER DRY APPLIED. FEET IN BILATERAL HEEL BOOTS. STAT LOCK APPLIED. SUPRAPUBIC CATHETER LEAKING URINE. GAUZE CHANGED. SPOUSE AND SON AT BEDSIDE. PT TO HAVE CTA. CRIT 1.5 AND PER SPOUSE PT HAD KIDNEY FAILURE WITH 17% FUNCTION YEARS AGO. DR MADDEN. CTA CANCELLED. LEVO GTT INFUSING.
--- NOTE | 2018-05-23 15:47 | NUR ---
WOUND CARE NOTE: CONSULT RECEIVED FOR CELLULITIS PATIENT PRESENTS WITH CELLULITIS EXTENDING FROM HER SACRAL AREA LATERALLY TO HER LEFT SIDE/ABDOMEN. RED, HOT TO TOUCH. DID NOT OBSERVE ANY OPENINGS. PATIENT HAS A STAGE 4 PRESSURE ULCER TO HER LEFT ISCHIAL TUBEROSITY MEASURING 4X5X3 WITH UNDERMINING FROM 12-2 O'CLOCK 4 CM. RED, MOIST WOUND BED TO 95% OF THE WOUND BED. 5% WITH BLACK DISCOLORATION, DISTAL LEFT ASPECT OF WOUND. PHILIPPE-WOUND WITH MACERATION AND AT 5 O'CLOCK THERE IS ULCERATION TO PHILIPPE-WOUND. CLEANSED WITH WOUND CLEANSER, PATTED DRY. PACKED WITH AQUACEL AG AND COVERED WITH ABD. PATIENT HAD A WOUND VAC IN PLACE, BUT DESIRE TO GIVE THE WOUND RAINA ANTIMICROBIAL COVERAGE/ALLOW THE CELLULITIS TO CALM DOWN. LEFT HEEL: UNSTAGEABLE PRESSURE ULCER MEASURING 3X3 WITH DRY, BLACK ESCHAR, STABLE. NO INDURATION, FLUCTUANCE, REDNESS, OR DRAINAGE NOTED. RIGHT LATERAL FOOT: UNSTAGEABLE PRESSURE ULCER MEASURING 5X3 WITH DRY, BLACK ESCHAR, STABLE. NO INDURATION, FLUCTUANCE, REDNESS, OR DRAINAGE NOTED. EDUCATED PATIENT AND SPOUSE ON DRESSING SELECTION, COMMUNICATED UNDERSTANDING. EDUCATED PATIENT AND SPOUSE ON TURNING AND KEEPING HOB <30 DEGREES IF POSSIBLE, COMMUNICATED UNDERSTANDING. RECOMMEND TURN Q2 HOURS JONATHAN MATTRESS ENCOURAGE GOOD NUTRITION/HYDRATION LIMIT LAYERS OF LINEN UNDER PATIENT NO BRIEFS IN BED LIMIT HOB <30 DEGREES
--- NOTE | 2018-05-23 16:05 | NUR ---
PLACED CALLS TO CHECK ON EQUIPMENT AND STATUS OF AUTH THRU MEDICAID MEDICAID: SPOKE WITH AUBREE, THERE IS AN AUTH IN MEDICAID SYSTEM FOR A SEMI-ELECTRIC HOSPITAL BED. THAT IS ALL THAT MEDICAID WILL COVER SPOKE WITH MARJAN IN EXCEPTIONS RE: LOW AIR LOSS MATTRESS, SHE STATED PT HAD RECEIVED A NEW MATTRESS RECENTLY AND MEDICAID WOULD ONLY COVER REPAIR FOR A BROKEN PUMP IF NEEDED. NO RETURN CALL YET FROM CHRISTELLE BANERJEE, WHO SPOUSE GAVE NUMBER FOR PER MARJAN IN EXCEPTIONS, CHRISTELLE IS A REVIEWER [facility] DME: CALLED AND SPOKE WITH THIERNO, THEN OFFICE [facility] KENNY. EFRAÍN STATED THAT THEY HAD PROVIDED DME FOR PT. PT RECEIVED A NEW LOW AIR LOSS MATTRESS FROM THEM IN AUG 2017. THEY RECEIVED CALL IN SEP 2017 THAT NOT WORKING, SO PROVIDED A 2ND NEW ONE AT THAT TIME. RECEIVED ANOTHER CALL FROM SPOUSE THAT 2ND MATTRESS NOT WORKING. WHEN THE DME [employer] OFFERED TO VISIT HOME TO CHECK ON MATTRESS, SPOUSE WOULD NOT ALLOW THEM TO COME IN. THEY HAVE NOT BEEN ABLE TO CHECK STATUS. SHE STATED THAT CHRISTELLE AT MEDICAID HAD AUTHORIZED THE LOW AIR LOSS MATTRESS BUT THAT [facility] HAS NOT BEEN PAID FOR EITHER ONE THEY HAVE PROVIDED. IF NEEDS NEW ONE, WILL NEED TO GO THRU MEDICAID EXCEPTION TO GET AUTH AND WOULD TAKE 4-6WEEKS TO DETERMINE IF COVERED BY MEDICAID EFRAÍN ALSO STATED THAT THEY ARE ABLE TO PROVIDE PT WITH A FULL ELECTRIC HOSPITAL BED, WOULD NEED THE ORDER, CODE [id number] AND CHART NOTES. MADE HER AWARE THERE IS AN AUTH IN MEDICAID FOR THE BED, SHE STATED THEY COULD USE THAT. SHE STATED HOWEVER THAT THE BED THE SPOUSE IS REQUESTING IS A HIGHER END 'NAYE' AND THEY DON'T CARRY IT, NOR WILL MEDICAID AUTHORIZE OR PAY FOR IT. [facility]: CALLED AND SPOKE WITH PT'S NURSE/CHASTITY. SHE STATED THAT WHEN SHE WAS SEEING PT IN THE HOME LITTLE 2 WEEKS AGO, THE LOW AIR LOSS MATTRESS WAS FUNCTIONING BUT THAT SHE WAS AWARE SPOUSE WAS WANTING A NEW BED FRAME FOR PT. SHE DID STATE THAT SPOUSE TAKES 'GOOD CARE OF PT, TURNS HER RELIGIOUSLY AND COOKS GOOD MEALS.' HE IS ABLE TO DO HER WOUND VAC CARE AND IS PARTICULAR ABOUT HER CARE. BEHZAD SMITH, IN HOME CARE: CONFIRMED THAT PT IS ON THEIR SERVICE. HER CAREGIVER IS TIMOTHY [phone] PLAN TO DISCUSS MEDICAID COVERED OPTIONS WITH SPOUSE AGAIN AND OFFER TO ASSIST TO GET THE BED AND HAVE LOW AIR LOSS MATTRESS CHECKED BY [facility].
--- NOTE | 2018-05-23 16:39 | EKG ---
[place] [address] ELECTROCARDIOGRAM REPORT Name: JAIME WASHINGTON Room: [address] ADM IN .R.#: [id number] Admission: 05/22/18 Attend Phys: Ck Guevara MD Discharge: Date of : 67 Report #: [id number] THIS REPORT FOR: //name// [facility] ED Test Date: 2018-05-22 Test Time: 20:05:55 Pat Name: JAIME WASHINGTON Department: Room: [facility] Gender: F Third Loader: 99 : 1965 Requested By: Rach Crews Order Number: [id number] MD: Real Uriostegui Measurements Intervals [place] Rate: 132 P: 72 LA: 60 QRS: 0 QRSD: 180 T: 242 QT: 383 QTc: 568 Interpretive Statements Sinus tachycardia Nonspecific intraventricular conduction delay Baseline wander in lead(s) V2,V5 Compared to ECG 03/31/2018 08:49:46 Intraventricular conduction delay now present Sinus rate has increased Short LA interval no longer present Early repolarization no longer present Possible ischemia no longer present Electronically Signed On 05-23-2018 16:39:48 CDT by Real Uriostegui [email or web address] <ELECTRONICALLY SIGNED> By: Real Uriostegui MD, FACC 05/23/18 1639 04 04 Real Uriostegui MD, FACC /EPI
--- NOTE | 2018-05-23 16:44 | EKG ---
[place] [address] ELECTROCARDIOGRAM REPORT Name: JAIME WASHINGTON Room: [address] ADM IN M.R.#: [id number] Admission: 05/22/18 Attend Phys: Ck Guevara MD Discharge: Date of : 67 Report #: [id number] THIS REPORT FOR: //name// [facility] Test Date: 2018-05-23 Test Time: 05:00:03 Pat Name: JAIME WASHINGTON Department: Room: [address] Gender: F [employer] Truck Driver: MELISSA : 1965 Requested By: Vibha Dwyer Order Number: [id number] MD: Real Uriostegui Measurements Intervals [place] Rate: 121 P: 42 MN: 83 QRS: -18 QRSD: 77 T: 147 QT: 358 QTc: 508 Interpretive Statements Sinus tachycardia Inferior infarct, old possible Compared to ECG 03/31/2018 08:49:46 Sinus rhythm persists Short MN interval no longer present Early repolarization no longer present Possible ischemia no longer present Myocardial infarct finding still present Electronically Signed On 05-23-2018 16:44:34 CDT by Real Uriostegui [email or web address] <ELECTRONICALLY SIGNED> By: Real Uriostegui MD, [facility] 05/23/18 1644 0500 0500 Real Uriostegui MD, [facility] /EPI
--- NOTE | 2018-05-23 18:00 | NUR ---
PT ALERT TO PERSON AND YEAR. PT REORIENTED TO MONTH. PT ABLE TO ANSWER YES/NO QUESTIONS. HR 90'S - 105. TMAX 100.1 AXILLARY. FAN AND COOL COMPRESSES USED. PT TOLERATING NECTAR THICKENED AND MECH CHOPPED DIET. WOODRUFF DRAINING DEPENDENTLY. AT TIMES PT YELLS "HELP" WHEN ASKING WHAT PT WANTS PT STATES "A COKE". PT REQUIRES SOMEONE TO FEED HER. PER PT NUMB FROM ELBOWS DOWN AND CHEST DOWN. BILATERAL HEEL BOOTS IN PLACE. SPOUSE AND SON IN ROOM. SPOUSE REPORTS HE IS AVAILABLE TO HELP REPOSITIONING PT.
[2018-05-24] VITALS (42 sets, daily range): BP systolic 71–121; BP diastolic 40–82
--- NOTE | 2018-05-24 04:46 | NUR ---
PT CURRENTLY RESTING IN BED. RESPONDS TO SIMPLE QUESTIONS. PT REMAINS ON 2L NC SATS 100% PT CONTINUES WITH LOW GRADE TEMP NOW AT 100.5. ST ON MONITOR. PT WITH MAINTENANCE IVF AND LEVO GTT.
--- NOTE | 2018-05-24 07:56 | CON ---
[address] [address] CONSULTATION Name: PADMINIJAIME Pee Room: [address] IN ..#: [id number] Admission: 05/22/18 Attend Phys: Ck Guevara MD Discharge: Date of : 67 Report #: [id number] THIS REPORT FOR: //name// CC: [facility] physician/PCP Ck Guevara DATE OF SERVICE: 05/23/2018 INFECTIOUS DISEASE CONSULTATION ATTENDING PHYSICIAN: Ck Guevara M.D. REASON FOR EVALUATION: Septic shock, perineal cellulitis, probable complicated urinary tract infection in the setting of a suprapubic catheter. HISTORY OF PRESENT ILLNESS: Chart reviewed, patient examined. This is a 52-year-old woman who I am familiar with who has been hospitalized over the years, most recently latter part of 03/2018, has multiple sclerosis in excess of 30 years with severe sequelae including essentially quadriplegia. She is mostly bedbound. She has got a chronic decubitus ulcer, does have a suprapubic catheter. She was admitted with fever and encephalopathy. Noted per , abrupt onset of inflammatory eruption involving her buttock site, this is somewhat away from her ischial decubitus ulcer. Evaluation showed an unremarkable chest x-ray and urinalysis did have marked pyuria. Urine and blood cultures are pending, presumptive diagnosis of cellulitis in addition to possible urinary tract infection. Empirically started on ceftriaxone, fluconazole, Zosyn and vancomycin. ALLERGIES: None known. MEDICATIONS: Include Zosyn, vancomycin, fluconazole, ceftriaxone, norepinephrine. PAST MEDICAL HISTORY: As noted above, multiple sclerosis, complication including decubitus ulcers, suprapubic catheter. SOCIAL HISTORY: Former smoker. No ethanol. FAMILY HISTORY: Noncontributory. REVIEW OF SYSTEMS: Limited due to her current state. PHYSICAL EXAMINATION: GENERAL: She does have evidence of the quadriplegia, in tbzs-ex-zzylangd distress. VITAL SIGNS: Temperature 99.8, pulse 101, respirations 20, blood pressure [facility] [address] [place] [address] CONSULTATION Name: JAIME WASHINGTON Room: [address] [place] [facility]#: [id number] Admission: 05/22/18 Attend Phys: Ck Guevara MD Discharge: Date of : 67 Report #: [id number] 95/74. SKIN: Warm, dry, no rashes. HEENT: Nasal cannula oxygen in place. NECK: Supple. LUNGS: Otherwise, clear breath sounds. HEART: Regular. Borderline tachycardic. I do not appreciate a murmur. ABDOMEN: Obese, soft. She has no peritoneal signs. BACK: Sacral site has [id number]-jk-[id number] inflammatory erythrodermic-type eruption. I do not appreciate any bullous lesions. There is no fluctuance. There was a wound VAC in place. LABORATORY DATA: Venous Doppler showed no evidence of DVT. TSH is 2.260. Urinalysis is greater than 25 white cells, greater than 30 bacteria, yeast is present. Electrolytes: Sodium 145, potassium 3.6, chloride 110, bicarbonate is 22, anion gap of 13, BUN and creatinine 27 and 1.5, glucose of 106. LFTs unremarkable. Albumin of 1.4, total protein 6.9. Prealbumin of 9.0. CBC: White count 21.0, H and H 9.8 and 31.1, platelets of 273. Lactic acid initially was 3.6, repeat was 1.6. CT of the pelvis notes the cellulitis, does have a fecal impaction, multiple right renal calculi, right hydronephrosis and hydroureter without definite stone at the area of narrowing of the ureter. She has large left gluteal and upper thigh decubitus ulcer. Has mild left hydronephrosis and hydroureter. CRP elevated at 408.3. ASSESSMENT: Febrile illness. Two things of concern are the inflammatory erythrodermic-type eruption. I think this is likely cellulitis. She may have had an abrupt onset, spouse noted it was not there earlier in the evening. Secondly, likely has a complicated urinary tract infection. We will continue broad-spectrum therapy to cover gram-positive and gram-negatives given the 2 sites. I think we can try to back off the double gram-negative coverage at this point. We will discontinue the ceftriaxone and see how she does clinically over the course of the next 24-48 hours. Await culture results. <ELECTRONICALLY SIGNED> By: Kashmir Herron MD 05/24/18 0756 1454 1832Jolatosha Herron MD /nt
[2018-05-24 10:08] LABS: HEMATOCRIT 29.5 % (37.0-47.0); HEMOGLOBIN 9.1 gm/dL (12.0-15.0); MCH 27.6 pg (26.0-34.0); MCHC 30.9 g/dL (28.0-37.0); MCV 89.4 fL (80.0-100.0); MPV 9.3 fl. (7.2-11.1); RBC 3.3 mil/uL (4.20-5.00); RDW-CV 19.1 % (10.5-14.5); WBC 18.9 thou/uL (4.0-11.0)
[2018-05-24 10:17] LABS: CALCIUM 7.7 mg/dL (8.5-10.1); CREATININE 1.5 mg/dL (0.6-1.3); POTASSIUM 3.6 mmol/L (3.5-5.1)
--- NOTE | 2018-05-24 11:32 | NUR ---
INTERDISCIPLINARY ROUNDS: PT REMAINS ON LEVO GTT WITH INT. FEVERS PER NURSING. MET WITH PT'S SPOUSE TO UPDATE ON DME ISSUE/BED AND JONATHAN MATTRESS AND MEDICAID COVERAGE. OFFERED TO ARRANGE FOR HOSPITAL BED (ELECTRIC) AND HAVE THE JONATHAN MATTRESS AT HOME TO BE CHECKED THRU [facility]. HE DECLINED THAT. HE SAID THAT WAS 'BS'. MADE HIM AWARE OF CALLS MADE BY CM AND INFO GATHERED. ENCOURAGED HIM TO RECONSIDER AND THAT CM COULD ARRANGE IF HE CHANGED HIS MIND. DID OFFER [employer] NUMBER FOR A NAVIGATOR THERE TO INVESTIGATE ANY FINANCIAL OR EQUIMENT ASSIST THEY COULD PROVIDE. HE DID TAKE THAT NUMBER. WILL FOLLOW
--- NOTE | 2018-05-24 11:40 | NUR ---
Nutrition: Pt on calorie count over weekend. RD will assess it on Sunday. Ray packets are ordered t.i.d. May use Arginaid or Beneprotein packets if Ray is out of stock over the weekend. New shipment in on Sunday. RECOMMEND MVI. See RD Assessment Form for details.
--- NOTE | 2018-05-24 18:00 | NUR ---
PT SLEPT THIS SHIFT. PT ARROUSABLE TO CONVERSATION WHEN PROMPTED. AFEBRILE. PT REPOSITIONED WITH WEDGES. CALORIE COUNT STARTED PER ORDERS. PT ATE 100% OF ALL MEALS THIS SHIFT. PT TITRATED OFF LEVO AT 1745. MEALS FED TO PT BY SPOUSE. NEW WOUND VAC PLACED BY WOUND RN THIS SHIFT. 0 OUTPUT.
[2018-05-25] VITALS (16 sets, daily range): BP systolic 84–123; BP diastolic 45–77
[2018-05-25 04:24] LABS: HEMATOCRIT 24.7 % (37.0-47.0); HEMOGLOBIN 7.7 gm/dL (12.0-15.0); MCHC 31.2 g/dL (28.0-37.0); MCV 89.6 fL (80.0-100.0); MPV 9.5 fl. (7.2-11.1); RBC 2.75 mil/uL (4.20-5.00); RDW-CV 19.3 % (10.5-14.5); WBC 11.3 thou/uL (4.0-11.0)
[2018-05-25 04:46] LABS: ALBUMIN 1.1 g/dL (3.4-5.0); CALCIUM 7.4 mg/dL (8.5-10.1); CREATININE 1.4 mg/dL (0.6-1.3); MAGNESIUM 1.5 mg/dL (1.8-2.4); POTASSIUM 4.1 mmol/L (3.5-5.1); TOTAL BILIRUBIN 0.2 mg/dL (<0.1-1.0); TOTAL PROTEIN 5.2 g/dL (6.4-8.2)
--- NOTE | 2018-05-25 05:33 | NUR ---
PT IS ALERT AND CAN ANSWER SIMPLE YES NO QUESTIONS, STRATEGIC PARTNER DEVELOPMENT MANAGER INTACT WITH ALARMS SET. SCDS INTACT. S/P CATH INTACT AND PATENT DRAINING YELLOW URINE.O2 2L BNC INTACT. WOUND VAC TO L ISCHEL TUBEROSITY INTACT AT 150MMHG SUCTION. FAMILY PRESENT DURING VISITING HOURS. LOVOPHED GTT REMAINS OFF, MAP HAS BEEN 60OR ABOVE PER DR MIGUEL. PROVO BOOTS INTACT. VSS AND NO ACUTE CHANGES DURING SHIF TWILL CONTINUE TO MONITOR
--- NOTE | 2018-05-25 14:40 | NUR ---
PATIENT ALERT TAKING PO WELL HAS GOOD SENSE OF HUMOR. FIXED LEAK OF WOUND VAC. TURNED Q 2 HOURS. HAD GOOD BM.
--- NOTE | 2018-05-25 18:40 | NUR ---
PATIENT DENIES DISTRESS REPORT GIVEN TO JERMAINE RN AWAITING TRANSFER TO 218
[2018-05-26] VITALS: BP 111/51
[2018-05-26 04:23] VITALS: BP 117/77
[2018-05-26 04:47] LABS: HEMATOCRIT 26.7 % (37.0-47.0); HEMOGLOBIN 8.5 gm/dL (12.0-15.0); MCH 28.2 pg (26.0-34.0); MCHC 31.8 g/dL (28.0-37.0); MCV 88.7 fL (80.0-100.0); RBC 3.01 mil/uL (4.20-5.00); WBC 13.7 thou/uL (4.0-11.0)
--- NOTE | 2018-05-26 04:53 | NUR ---
RECEIVED CARE AND ASSUMED CARE OF PATIENT AT 1930. ASSESSMENT AND VITALS COMPLETED CHARTED, VSS. GRAPHIC MANAGER IN PLACE TRACING ST. AND SON AT BEDSIDE THROUGHOUT SHIFT. VOICED CONCERNS ABOUT BLOOD PRESSURE AND TEMPERATURE. REASSURANCE PROVIDED AND INFORMED THAT VITALS WOULD BE MONITORED Q4H AND PRN. EXTREMEMLY INVOLVED IN PATIENT'S CARE AND PARTICULAR ABOUT CARE. THIS RN AND STAFF HAS ALLOWED TO PARTICIPATE IN PLAN OF CARE FOR PATIENT. REASSURED PATIENT'S THE ROLE OF STAFF AND ENCOURAGED TO TAKE A BREAK AND ALLOW STAFF TAKE CARE OF PATIENT'S NEEDS. CONTINUES TO REFUSE AND STATES "IT IS HIS JOB BECAUSE SHE IS HIS ." PATIENT HAD THREE INCONTINENT EPISODES OF STOOL THIS SHIFT. PHILIPPE AND WOUND CARE PROVIDED. HEELS PAINTED WITH BETADINE PER ORDERS. PRAFO BOOTS REMAIN IN PLACE. PATIENT REPOSITIONED WITH WEDGES Q2H. PATIENT'S FAMILY OBSERVED FEEDING PATIENT CANDY AND OTHER FOODS THROUGHOUT SHIFT. MADE FAMILY AWARE OF ORDERS TO COMPLETE CALORIC COUNT FOR 3 DAYS AND REQUESTED THAT ANYTHING THAT WAS FED TO PATIENT BE KNOWN TO STAFF FOR AN ACCURATE CALORIC COUNT. THEN STATED "THAT IS NOT NECCESSARY; THERE IS NO DOUBT THAT SHE IS TAKING IN ENOUGH PROTEIN AND CALORIES. SHE EATS 90-100% OF ALL MEALS PLUS BOOST SUPPLEMENTS." HOURLY ROUNDING OBSERVED. CALL LIGHT WITHIN REACH.
[2018-05-26 04:56] LABS: CALCIUM 7.7 mg/dL (8.5-10.1); CREATININE 1.5 mg/dL (0.6-1.3); MAGNESIUM 1.5 mg/dL (1.8-2.4); POTASSIUM 3.8 mmol/L (3.5-5.1)
[2018-05-26 08:00] VITALS: BP 119/62
[2018-05-26 12:01] VITALS: BP 96/58
[2018-05-26 15:54] VITALS: BP 125/66
--- NOTE | 2018-05-26 17:31 | NUR ---
PT REMAINED ALERT, ORIENTED X3, AND DROWSY AT TIMES. PT IS ON RA. LUNGS CLEAR. REGULAR HEART RATE, NSR. PT HAS CONWAY TROUGH DRAWN, VALUE CRITICAL AT 33. VANC HELD THIS SHIFT, AND ID DISCONTINUED VANC COMPLETELY. URINE CULTURE CAME BACK, SENSITIVE TO ZOSYN, WILL CONTINUE ANTIBIOTIC. WOUNDS PAINTED WITH BETADINE TO HEELS AND PICTURES TAKEN. WOUNDS THROUGHOUT ISCHIAL TUBEROSITY ON RT SIDE, SOME COVERED WITH WOUND VAC. CELLULITIS ON LEFT SIDE FROM RIBS TO THIGH. PICTURES TAKEN AND DOCUMENTED. PT TURNED Q2. CALL LIGHT IN REACH. BED ALARM ON. WILL CONTINUE TO MONITOR.
--- NOTE | 2018-05-26 17:39 | NUR ---
DIETARY NOTIFIED OF CALORIE COUNT, NO CALORIE COUNT SHEET PROVIDED.
--- NOTE | 2018-05-26 18:38 | NUR ---
NURSING DOCUMENTATION BY Jack SPAIN RN REVIEWED
[2018-05-26 20:00] VITALS: BP 110/62
[2018-05-27] VITALS: BP 116/74
[2018-05-27 03:47] LABS: HEMATOCRIT 26.4 % (37.0-47.0); HEMOGLOBIN 8.3 gm/dL (12.0-15.0); MCH 27.7 pg (26.0-34.0); MCHC 31.3 g/dL (28.0-37.0); MCV 88.5 fL (80.0-100.0); MPV 8.7 fl. (7.2-11.1); RBC 2.98 mil/uL (4.20-5.00); WBC 14.4 thou/uL (4.0-11.0)
--- NOTE | 2018-05-27 03:49 | NUR ---
CALL TO DOCTOR REGARDING TEMP., SEE SHERIF.
[2018-05-27 04:00] VITALS: BP 132/72
[2018-05-27 04:09] LABS: ALBUMIN 1.4 g/dL (3.4-5.0); CALCIUM 7.5 mg/dL (8.5-10.1); CREATININE 1.7 mg/dL (0.6-1.3); MAGNESIUM 1.7 mg/dL (1.8-2.4); POTASSIUM 3.7 mmol/L (3.5-5.1); TOTAL BILIRUBIN 0.2 mg/dL (<0.1-1.0); TOTAL PROTEIN 6.5 g/dL (6.4-8.2)
--- NOTE | 2018-05-27 05:42 | NUR ---
PATIENT RESTED IN BED, NO ACUTE CHANGES. PATIENT DID NOT SHOW SIGNS OF DISTRESS. FALL PRECAUTIONS IN PLACE, BED ALARM ON, CALL LIGHT WITH IN REACH, HOURLY ROUNDING OBSERVED.
[2018-05-27 08:10] VITALS: BP 85/55
--- NOTE | 2018-05-27 12:17 | NUR ---
ASSUMED CARE OF PT AT 0730. PT RESTING IN BED. AND SON AT BEDSIDE. PT A&0X2, FORGETFUL AND CONFUSED AT TIMES. PT IN CONTACT ISOLATION FOR MRSA. PT DENIES ANY PAIN OR SHORTNESS OF BREATH AT THIS TIME. PT TRACING SR ON THE NETWORK OPERATIONS LEAD. ON RA SAT 95%. PT INCONT OF BOWEL THIS AM. SUPRAPUBIC WOODRUFF CATHETER TO DEPENDENT DRAINAGE. WOUND CARE HERE TO SEE PT THIS AM AND CHANGED WOUND VAC DRESSING. PT GOAL FOR TODAY IS TO REMAIN AFEBRILE, REPOSITION EVERY 2 HOURS AND IV ANTIBIOTICS. DR OCONNELL HERE TO SEE PT AND ORDERS RECEIVED FOR D5 AT 50ML/HR. AM ASSESSMENT CHARTED. MEDICATIONS PER NOV. PT ON CALORIE COUNT. PT REPOSITIONED EVERY 2 HOURS FOR COMFORT. HOURLY ROUNDING OBSERVED. BED IN LOW POSITION. BED ALARM IN PLACE .FALL PRECAUTIONS IN PLACE. CALL LIGHT WITHIN REACH. WILL CONTINUE PLAN OF CARE.
[2018-05-27 12:21] VITALS: BP 119/81
[2018-05-27 16:53] VITALS: BP 102/61
--- NOTE | 2018-05-27 18:09 | NUR ---
NO ACUTE CHANGES THROUGHOUT SHIFT. REFER TO CHARTING. PT FEBRILE AT 1700- TEMPE 100.1. TREATED WITH PRN TYLENOL. WILL MONITOR CLOSELY. PT CHANGED TO BARIATRIC BED. D5 INFUSING AT 50 ML/HR. WOUND CARE HERE TODAY AND CHANGED WOUND VAC DRESSING. ASSISTED PT WITH ALL MEALS. AND SON AT BEDSIDE THROUGHOUT SHIFT. PT DENIES ANY PAIN OR SHORTNESS OF BREATH THROUGHOUT AFTERNOON. CONTINUES TO BE IN CONTACT ISOLATION FOR MRSA. CONTINUES TO TRACE SR/ST ON THE ELECTRIC MOTOR MECHANIC. ON RA SAT UPPER 90'S. PT INCONT OF BOWEL X3 TODAY. WOODRUFF TO DEPENDENT DRAINAGE. CALORIE COUNT IN PLACE. MEDICATIONS PER NOV. PT REPOSITIONED EVERY 2 HOURS FOR COMFORT. HOURLY ROUNDING OBSERVED. BED IN LOW POSTIION. FALL PRECAUTIONS IN PLACE .CALL LIGHT WITHIN REACH. WILL CONTINUE PLAN OF CARE.
[2018-05-27 20:00] VITALS: BP 113/64
[2018-05-28] VITALS (8 sets, daily range): BP systolic 108–128; BP diastolic 60–87
--- NOTE | 2018-05-28 01:40 | NUR ---
PATIENT RESTED IN BED, NO ACUTE CHANGES. PATIENT DID NOT SHOW SIGNS OF DISTRESS. FALL PRECAUTIONS IN PLACE, CALL LIGHT WITH IN REACH, HOURLY ROUNDING OBSERVED.
[2018-05-28 04:01] LABS: HEMATOCRIT 25.1 % (37.0-47.0); HEMOGLOBIN 7.8 gm/dL (12.0-15.0); MCH 27.6 pg (26.0-34.0); MCHC 31.2 g/dL (28.0-37.0); MCV 88.6 fL (80.0-100.0); MPV 9.1 fl. (7.2-11.1); RBC 2.84 mil/uL (4.20-5.00); RDW-CV 19.2 % (10.5-14.5); WBC 16.6 thou/uL (4.0-11.0)
[2018-05-28 04:16] LABS: CALCIUM 7.6 mg/dL (8.5-10.1); CREATININE 1.5 mg/dL (0.6-1.3); MAGNESIUM 1.7 mg/dL (1.8-2.4); POTASSIUM 3.5 mmol/L (3.5-5.1)
--- NOTE | 2018-05-28 10:41 | NUR ---
ASSUMED CARE OF PT AT 0730. PT RESTING IN BED. AND SON AT BEDSIDE. PT A&0X2-3, FORGETFUL AT TIMES. PT DENIES ANY PAIN OR SHORTNESS OF BREATH. PT IN CONTACT ISOLATION FOR MRSA. PT TRACING SR ON THE CLOTH HAND. ON RA SAT UPPER 90'S. PT AFEBRILE THIS AM. PT INCONT OF BOWEL. WOODRUFF TO DEPENDENT DRAINAGE. IVF. WOUND VAC IN PLACE CONTINUOUS. PT GOAL FOR TODAY IS TO REMAIN AFEBRILE AND IV ANTIBIOTICS. ASSIST PT WITH MEALS. AM ASSESSMENT CHARTED. MEDICATIONS PER NOV. PT REPOSITIONED EVERY 2 HOURS FOR COMFORT. HOURLY ROUNDING OBSERVED. BED IN LOW POSITION. FALL PRECAUTIONS IN PLACE. CALL LIGHT WITHIN REACH. WILL CONTINUE PLAN OF CARE.
[2018-05-28 13:42] LABS: URINE BILIRUBIN NEGATIVE (Negative); URINE BLOOD TRACE (Negative); URINE CLARITY CLEAR; URINE COLOR YELLOW; URINE GLUCOSE-RANDOM NEGATIVE (Negative); URINE KETONES NEGATIVE (Negative); URINE PROTEIN NEGATIVE (Negative); URINE SPECIFIC GRAVITY <= 1.005 (1.005-1.030); URINE UROBILINOGEN 0.2 E.U./dl (0.2-1.0)
[2018-05-28 14:04] LABS: URINE LEUKOCYTES-REFLEX 2+ (Negative); URINE NITRITE-REFLEX POSITIVE (Negative)
[2018-05-28 14:06] LABS: BACTERIA-REFLEX 1-9 Few /HPF (None Seen); CASTS None Seen /LPF (None Seen); URINE RBC 0-2 Rare /HPF (0-2); URINE WBC-REFLEX 6-15 Few /HPF (0-5)
[2018-05-28 14:07] LABS: CRYSTALS None Seen /LPF (None Seen); SQUAMOUS 0-3 Few /LPF (0-3)
--- NOTE | 2018-05-28 14:56 | NUR ---
CALLED AND LEFT 2ND MESSAGE FOR [employer] [phone] RE: ASSIST WITH EQUIPMENT. NO DC DATE YET. WILL FOLLOW
--- NOTE | 2018-05-29 03:12 | NUR ---
PATIENT RESTED IN BED, NO ACUTE CHANGES. PATIENT DID NOT SHOW SIGNS OF DISTRESS. FALL PRECAUTIONS IN PLACE, CALL LIGHT WITH IN REACH, HOURLY ROUNDING OBSERVED.
[2018-05-29 03:22] LABS: HEMATOCRIT 26.4 % (37.0-47.0); HEMOGLOBIN 8.3 gm/dL (12.0-15.0); MCH 27.7 pg (26.0-34.0); MCHC 31.4 g/dL (28.0-37.0); MCV 88.4 fL (80.0-100.0); MPV 8.6 fl. (7.2-11.1); RBC 2.99 mil/uL (4.20-5.00); RDW-CV 19.1 % (10.5-14.5); WBC 16.7 thou/uL (4.0-11.0)
[2018-05-29 03:50] LABS: CALCIUM 7.9 mg/dL (8.5-10.1); CREATININE 1.5 mg/dL (0.6-1.3); POTASSIUM 4.3 mmol/L (3.5-5.1)
[2018-05-29 04:00] VITALS: BP 134/79
[2018-05-29 08:00] VITALS: BP 121/73
--- NOTE | 2018-05-29 11:27 | NUR ---
ASSUMED CARE OF PT AT 0730. PT LYING IN BED. AND SON AT BEDSIDE. PT A&0X2, FORGETFUL AND CONFUSED AT TIMES. FLAT AFFECT NOTED. PT DENIES ANY PAIN OR SHORTNESS OF BREATH AT THIS TIME. PT TRACING ST ON THE MANAGER ANALYTICAL. RATE LOW 100'S. PT ON RA SAT 98%. PT TOTAL CARE. ASSISTS WITH MEALS. PT IN CONTACT ISOLATION FOR MRSA. WOODRUFF TO DEPENDENT DRAIANGE. PT GOAL FOR TODAY IS TO REMAIN AFEBRILE, IV ANTIBIOTICS AND OBTAIN URINE CULTURE REPORT. CONTINUOUS WOUND VAC IN PLACE. CALORIE COUNT IN PLACE. AM ASSESSMENT CHARTED. MEDICATIONS PER NOV. PT REPOSITIONED EVERY 2 HOURS FOR COMFORT. HOURLY ROUNDING OBSERVED. BED IN LOW POSITION. FALL PRECAUTIONS IN PLACE. CALL LIGHT WITHIN REACH. WILL CONTINUE PLAN OF CARE.
[2018-05-29 11:32] VITALS: BP 109/75
--- NOTE | 2018-05-29 12:03 | NUR ---
CONTINUE TO FOLLOW. DC PLAN IS FOR PT TO RETURN HOME WITH SPOUSE AND SON WITH [employer] . PT HAS WOUND VAC THRU [facility] AT HOME. SPOUSE HAS DECLINED MEDICAID COVERED BED AND FOR CHECK ON LOW AIRLOSS MATTRESS AT HOME BY [facility]. HE IS WAITING FOR F/U WITH [employer] RE: ASSIST WTIH GETTING THE BED HE STATES PT 'NEEDS' AT HOME. CM TO FOLLOW
[2018-05-29 12:20] VITALS: BP 109/75
--- NOTE | 2018-05-29 14:25 | NUR ---
DR OCONNELL HERE TO SEE PT. ORDERS RECEIVED FOR CEFEPIME IV. REFER TO EMAR. PT MADE MEDICAL SURGICAL STATUS. KAYAKING INSTRUCTOR REMOVED. URINE CULTURES PENDING. WILL CONTINUE PLAN OF CARE.
--- NOTE | 2018-05-29 16:00 | NUR ---
PATIENT ARRIVED TO UNIT AT 1530. ALERT AND ORIENTED TO SELF AND PLACE. VITAL SIGNS STABLE. FEBRILE. ORIENTED PATIENT TO ROOM. CALL LIGHT WITHIN REACH. NURSING WILL CONTINUE TO MONITOR.
[2018-05-29 17:17] VITALS: BP 99/73
--- NOTE | 2018-05-29 17:18 | NUR ---
PATIENT ALERT AND ORIENTED X 2. FORGETFUL AND CONFUSED AT TIMES. VITAL SIGNS STABLE ON ROOM AIR. FEBRILE WITH A SLIGHT AXILLARY TEMP OF 99.4. IV PATENT AND SALINE LOCKED. DENIES PAIN AND NAUSEA. CONTINUOUS WOUND VAC IN PLACE. WOODRUFF TO DEPENDENT DRAINAGE. CALORIE COUNT IN PLACE. REPOSITIONED AND TURNED EVERY TWO HOURS. ISOLATION FOR MRSA MAINTAINED. FALL PRECAUTIONS IN PLACE AND BED ALARM ON. HOURLY ROUNDS MAINTAINED SINCE ARRIVING TO UNIT. CALL LIGHT WITHIN REACH. NURSING WILL CONTINUE TO MONITOR.
[2018-05-29 23:29] VITALS: BP 119/74
[2018-05-30 06:45] LABS: HEMOGLOBIN 8.5 gm/dL (12.0-15.0); MCHC 31.4 g/dL (28.0-37.0); MCV 89.1 fL (80.0-100.0); MPV 8.3 fl. (7.2-11.1); RBC 3.02 mil/uL (4.20-5.00); RDW-CV 19.7 % (10.5-14.5); WBC 13.8 thou/uL (4.0-11.0)
[2018-05-30 06:59] LABS: ALBUMIN 1.6 g/dL (3.4-5.0); CALCIUM 7.9 mg/dL (8.5-10.1); CREATININE 1.4 mg/dL (0.6-1.3); MAGNESIUM 1.9 mg/dL (1.8-2.4); POTASSIUM 3.8 mmol/L (3.5-5.1); TOTAL BILIRUBIN 0.2 mg/dL (<0.1-1.0); TOTAL PROTEIN 7.3 g/dL (6.4-8.2)
--- NOTE | 2018-05-30 07:43 | NUR ---
PATIENT SLEPT MOST OF THE NIGHT. PATIENT WAS TURNED ABOUT EVERY TWO HOURS. PATIENT HAD NO COMPLAINTS OF PAIN. FAMILY REMAINS AT BEDSIDE. WILL CONTINUE TO MONITOR.
[2018-05-30 16:22] VITALS: BP 133/78
--- NOTE | 2018-05-30 17:16 | NUR ---
PATIENT TURNED Q2. NO COMPLAINTS OF PAIN THIS SHIFT. WOUND VAC REMAINS IN PLACE, GOOD SEAL NOTED. IV ABX INFUSED ORDERED. GOOD APPETITE, ASSISTS WITH FEEDING. FAMILY AT BEDSIDE ALL SHIFT, VERY SUPPORTIVE. WOODRUFF DRAINING LARGE AMOUNTS OF YELLOW URINE.
[2018-05-31] VITALS: BP 141/76
--- NOTE | 2018-05-31 06:37 | NUR ---
PATIENT SLEPT MOST OF THE NIGHT. IV ANTIBIOTIC WAS GIVEN ORDERED. PATIENT HAD A LOW GRADE TEMP OVERNIGHT. PATIENT WAS TURNED ABOUT EVERY TWO HOURS. WILL CONTINUE TO MONITOR.
[2018-05-31 10:23] VITALS: BP 127/83
--- NOTE | 2018-05-31 18:42 | NUR ---
PATIENT HAS BEEN ALERT AND ORIENTED TODAY VERY PLEASANT. FAMILY HAS BEEN AT BEDSIDE ALL DAY WITH PATIENT. WOUND VAC CHANGED TODAY BY WOUND NURSE. VITAL SIGNS HAVE BEEN STABLE ON ROOM AIR. APPETITE HAS BEEN FAIR TODAY. FREQUENT TURNS AND REPOSTIONING TODAY. CALL LIGHT IS IN REACH, FAMILY AT BEDSIDE WILL CONTINUE TO MONITOR.
[2018-05-31 19:50] VITALS: BP 95/67
[2018-06-01 05:00] LABS: HEMOGLOBIN 8.9 gm/dL (12.0-15.0); MCH 28.4 pg (26.0-34.0); MCHC 31.6 g/dL (28.0-37.0); MCV 89.8 fL (80.0-100.0); MPV 8.4 fl. (7.2-11.1); RBC 3.12 mil/uL (4.20-5.00); RDW-CV 19.9 % (10.5-14.5); WBC 12.7 thou/uL (4.0-11.0)
[2018-06-01 05:35] LABS: ALBUMIN 1.9 g/dL (3.4-5.0); CALCIUM 8.2 mg/dL (8.5-10.1); CREATININE 1.4 mg/dL (0.6-1.3); POTASSIUM 4.5 mmol/L (3.5-5.1); TOTAL BILIRUBIN 0.2 mg/dL (<0.1-1.0); TOTAL PROTEIN 7.3 g/dL (6.4-8.2)
--- NOTE | 2018-06-01 05:46 | NUR ---
PATIENT REMAINS ALERT AND ORIENTED TO PERSON AND PLACE WITH PERIODS OF CONFUSION. VITAL SIGNS STABLE ON ROOM AIR. RIGHT TRIPLE LUMEN IJ IN PLACE AND PATENT. INFUSED ANTIBIOTICS PER ORDERS. WOUND VAC IN PLACE AND PATENT. PATIENT REMAINS ON BED REST. BILATERAL SCD'S AND BOOTS IN PLACE THROUGHOUT SHIFT. ASSISTED TO REPOSITION EVERY TWO HOURS. PATIENT'S FAMILY IS AT BEDSIDE AT ALL TIMES AND WOULD LIKE TO HELP WITH TOTAL CARE. RESTING COMFORTABLY THROUGHOUT THE NIGHT. HOURLY ROUNDING COMPLETE. CALL LIGHT WITHIN REACH. NURSING WILL CONTINUE TO MONITOR.
[2018-06-01 08:00] VITALS: BP 113/69
[2018-06-01 16:57] VITALS: BP 105/62
--- NOTE | 2018-06-01 17:15 | NUR ---
ASSUMED CARE THIS AM, VSS, NO DISTRESS NOTED, SEE ASSESSMENT FOR DETAILS, TURNED FREQUENTLY, PERICARE PROVIDED. WOUND VAC DSG INTACT, SEROSANGUINOUS FLUID IN SMALL AMT. SPOUSE AT BEDSIDE MOST OF THIS SHIFT, EAGER TO PROVIDE ASSIST. IVANIA IV ABT WELL, NO S/S ADR. CARE PLAN REVIEWED WITH SPOUSE, NO QUESTIONS AT THIS TIME, CONT POC.
[2018-06-01 21:10] VITALS: BP 111/73
--- NOTE | 2018-06-02 04:37 | NUR ---
PATIENT ALERT AND RESPONSIVE. AT BEDSIDE. TURNED Q2H ON SPECIALTY MATTRESS. INCONT MOD BM. WOUND VAC PRESENT LEFT HIP/THIGH. VITAL SIGNS STABLE WITH TEMP 99.1. ANTIBIOTICS/MEDS PER ORDERS. CONTINUE TO MONITOR.
[2018-06-02 08:00] VITALS: BP 116/68
[2018-06-02 16:36] VITALS: BP 108/74
[2018-06-02 21:00] VITALS: BP 126/78
[2018-06-03 01:01] LABS: URINE BILIRUBIN NEGATIVE (Negative); URINE BLOOD TRACE (Negative); URINE CLARITY CLEAR; URINE COLOR STRAW; URINE GLUCOSE-RANDOM NEGATIVE (Negative); URINE KETONES NEGATIVE (Negative); URINE LEUKOCYTES 1+ (Negative); URINE NITRITE NEGATIVE (Negative); URINE PROTEIN NEGATIVE (Negative); URINE SPECIFIC GRAVITY 1.015 (1.005-1.030); URINE UROBILINOGEN 0.2 E.U./dl (0.2-1.0)
[2018-06-03 03:20] LABS: CASTS None Seen /LPF (None Seen); SQUAMOUS 0-3 Few /LPF (0-3); URINE WBC >25 Many /HPF (0-5)
[2018-06-03 03:21] LABS: BACTERIA 1-9 Few /HPF (None Seen); CRYSTALS None Seen /LPF (None Seen); URINE RBC 0-2 Rare /HPF (0-2)
--- NOTE | 2018-06-03 04:45 | NUR ---
PATIENT HAS REMAINED ALERT AND COOPERATIVE. MINAMAL INTERACTIVE SPEECH. SPOUSE AT BEDSIDE AND ABLE TO DECIPHER BEST WHAT PATIENT NEEDS. TURNED Q2H. MOD SOFT BM. WOUND VAC TO LEFT HIP/THIGH HAS REMAINED INTACT TO CONTINUOUS SUCTION. SCANT SEROSANGUINEOUS DRAINAGE IN TUBING. SPECIALTY BED. AFEBRILE TONIGHT, THOUGH FACE AT TIMES APPEARS FLUSHED. URINE FOR UA SENT TO LAB. NM STUDY ORDERED FOR TODAY. IV ANTIBIOTICS PROVIDED ORDERED. CONTINUE TO MONITOR.
[2018-06-03 08:00] VITALS: BP 112/66
--- NOTE | 2018-06-03 12:39 | NUR ---
Following through dc. Pt to dc home with and SW can arrange for resumption of HH services through [facility].
[2018-06-03 16:00] VITALS: BP 111/67
[2018-06-04] VITALS: BP 130/83
--- NOTE | 2018-06-04 06:24 | NUR ---
PATIENT SLEPT MOST OF THE NIGHT. IV ANTIBIOTIC WAS GIVEN ORDERED. PATIENT WAS TURNED ABOUT EVERY TWO HOURS. WOUND VAC TO LEFT ISHIAL WOUND REMAINS IN PLACE. WILL CONTINUE TO MONITOR.
[2018-06-04 08:15] VITALS: BP 118/69
--- NOTE | 2018-06-04 15:32 | NUR ---
WOUND CARE NOTE: ATTEMPTED TO CHANGE PATIENT'S WOUND VAC, BUT STATES HE HAD CHANGED IT YESTERDAY. VAC FUNCTIONING APPROPRIATELY WITHOUT LEAK. PATIENT'S CHANGES HER WOUND VAC AT HOME. DESIRES TO WAIT UNTIL TOMORROW FOR CHANGE TO KEEP HER ON HER M-W-F DRESSING CHANGE. PLAN TO CHANGE TOMORROW.
[2018-06-04 15:43] VITALS: BP 96/58
[2018-06-04 16:51] VITALS: BP 110/65
--- NOTE | 2018-06-04 18:43 | NUR ---
PATIENT A&OX4, ROOM AIR, RIGHT IJ TRIPPLE LUMEN SALINE LOCK. MS, CONTRACTURED WITH ARMS AND LEGS. Q2 TURN. NO C/O PIAN/N/V. NO OTHER CONCERNS AT THIS TIME. APPROPRIATE AND COOPORATIVE WITH CARE.
[2018-06-04 23:48] VITALS: BP 120/78
[2018-06-05 05:52] LABS: HEMATOCRIT 29.6 % (37.0-47.0); HEMOGLOBIN 9.6 gm/dL (12.0-15.0); MCHC 32.3 g/dL (28.0-37.0); MCV 89.8 fL (80.0-100.0); MPV 8.2 fl. (7.2-11.1); RBC 3.3 mil/uL (4.20-5.00); RDW-CV 19.8 % (10.5-14.5); WBC 9.4 thou/uL (4.0-11.0)
[2018-06-05 06:17] LABS: ALBUMIN 2.3 g/dL (3.4-5.0); CALCIUM 8.9 mg/dL (8.5-10.1); CREATININE 1.2 mg/dL (0.6-1.3); POTASSIUM 4.4 mmol/L (3.5-5.1); TOTAL BILIRUBIN 0.2 mg/dL (<0.1-1.0); TOTAL PROTEIN 7.9 g/dL (6.4-8.2)
--- NOTE | 2018-06-05 06:34 | NUR ---
PATIENT SLEPT MOST OF THE NIGHT. PATIENT WAS TUNRED ABOUT EVERY TWO HOURS. PATIENT HAD NO COMPLAINTS OF PAIN. WOUND VAC REMAINS INTACT TO LEFT ISHIAL WOUND. FAMILY REMAINS AT BEDSIDE. WILL CONTINUE TO MONITOR.
[2018-06-05 08:00] VITALS: BP 108/72
[2018-06-05 12:08] VITALS: BP 109/75
[2018-06-05 14:17] VITALS: BP 109/75
[2018-06-05 14:27] VITALS: BP 109/75
--- NOTE | 2018-06-05 14:58 | NUR ---
HARDSCAPE FOREMAN SPOKE TO THE PATIENT AND SPOUSE TO DISCUSS DISCHARGE PLANNING NEEDS AND HH AT D/C. PATIENT WOULD LIKE TO RESUME HH WITH [facility], AND REQUEST AMBULANCE TRANSPORT HOME. SPOKE TO [facility] WITH INTAKE AT [facility] TO INFORM OF THE PATIENT'S D/C AND FAXED ORDERS TO RESUME HH. [place] TO CONTACT PATIENT TO SETUP TIME TO VISIT. SPOKE TO [facility] TO INFORM OF THE NEED OF TRANSPORT AND FAXED PATIENT TRANSFER FORM. [facility] TO PROVIDE TRANSPORT AT 1530. INFORMED PATIENT AND RN IN-CHARGE OF PATIENT OF TIME OF TRANSFER. CM WILL REMAIN AVIALABLE TO ASSIST AND FOLLOW NEEDED.
[2018-06-05 16:00] VITALS: BP 150/82
--- NOTE | 2018-06-05 16:20 | NUR ---
PATIENT WOUND VAC CHANGED THIS AM BY WOUND CARE, PATIENT DID NOT WANT TO GO HOME TO GET WOUND VAC SO DRESSING REMOVED AND WET TO DRY DRESSING PLACED PER PROTOCOL. CENTRAL LINE DC'D THIS AFTERNOON. DR. ASHBY AWARE OF RESULTS OF WBC WHOLEBODY TEST. ALL BELONGINGS SENT WITH PATIENT IN AMBULANCE TO HOME. VERBALIZES UNDERSTANDING OF PAPERWORK AND SCRIPT CALLED INTO [facility] PER REQUEST.
== END 2018-06-05 15:45 | disposition home health service (06) | DRG 871 ==
LOC: M.ERS 19:33 → M.TBA-ER 21:15 → M.ICU 21:15 → M.2W 05-25 19:28 → M.3W 05-29 15:22
PROVIDERS: Emergency Medicine; Internal Medicine; ADMIT Internal Medicine
PROC: 02HV33Z Insertion of Infusion Device into Superior Vena Cava, Percutaneous Approach (ICD-10-PCS; principal; 2018-05-22)
DX: A41.9 Sepsis, unspecified organism (principal); R65.21 Severe sepsis with septic shock; G82.50 Quadriplegia, unspecified; E43 Unspecified severe protein-calorie malnutrition; L03.317 Cellulitis of buttock; N39.0 Urinary tract infection, site not specified; J98.11 Atelectasis; M86.8X8 Other osteomyelitis, other site; L03.818 Cellulitis of other sites; L89.309 Pressure ulcer of unspecified buttock, unspecified stage; E87.8 Other disorders of electrolyte and fluid balance, not elsewhere classified; D47.3 Essential (hemorrhagic) thrombocythemia; D64.9 Anemia, unspecified; B96.5 Pseudomonas (aeruginosa) (mallei) (pseudomallei) as the cause of diseases classified elsewhere; G35 Multiple sclerosis; Z98.891 History of uterine scar from previous surgery; Z74.01 Bed confinement status; Z86.14 Personal history of Methicillin resistant Staphylococcus aureus infection; Z68.38 Body mass index [BMI] 38.0-38.9, adult

== ENCOUNTER 2019-02-28 04:57 | Inpatient (IN) | payer MEDICAID ==
[2019-02-28] VITALS (38 sets, daily range): BP systolic 68–141; BP diastolic 35–111
[~2019-02-28] VITALS: Ht 165.1 cm; Wt 81.6 kg
--- NOTE | ~2019-02-28 | EEG ---
[address] [address] EEG STUDY REPORT Name: JAIME WASHINGTON Pee Room: [address] IN .R.#: [id number] Admission: 02/28/19 Attend Phys: Vibha Dwyer MD Discharge: Date of : 67 Report #: [id number] THIS REPORT FOR: //name// CC: Julien Dwyer DATE OF SERVICE: 03/03/2019 This patient is being evaluated for seizure. EEG was done by placing the electrodes by standard 10-20 system of electrode placement. Both referential and sequential montages were used for recording. Background activity on the right side go up to 9 Hz and 30 microvolt. Photic stimulation was unremarkable. EEG at least on occasion is much slower on the left side as compared to the right side. IMPRESSION: This is an abnormal EEG because it is slow in generalized fashion. It is more slow on the left side as compared to the right side. Because of that, a left-sided lesion should be excluded. No active epileptiform activity was noticed during this record. By: 1759 [id number] Small MD /nt
[~2019-02-28 04:57] MED LIST changes: +CEFDINIR300 MG PO
[2019-02-28 05:29] LABS: ABSOLUTE BASOPHILS 0.1 thou/uL (0.0-0.2); ABSOLUTE EOSINOPHILS 0.1 thou/uL (0.0-0.7); ABSOLUTE LYMPHOCYTES 1.8 thou/uL (0.8-5.3); ABSOLUTE MONOCYTES 0.5 thou/uL (0.0-1.2); ABSOLUTE NEUTROPHILS 8.1 thou/uL (1.6-8.1); BASOPHILS 0.5 %; EOSINOPHILS 0.9 %; HEMATOCRIT 37.4 % (37.0-47.0); LYMPHOCYTES 17.1 %; MCH 24.8 pg (26.0-34.0); MCHC 32.1 g/dL (28.0-37.0); MCV 77.2 fL (80.0-100.0); MONOCYTES 4.8 %; NUCLEATED RBCS 0 /100WBC; PLATELET COUNT* 305 thou/uL (150-400); POLYS 76.7 %; RBC 4.84 mil/uL (4.20-5.00); RDW-CV 21.9 % (10.5-14.5); WBC 10.5 thou/uL (4.0-11.0)
[2019-02-28] MEDS ORDERED: FISH OIL DR 1,1 EAC1 PO (05:43)
[2019-02-28] MEDS ORDERED: DDAVP0.1 MG PO (05:45)
[2019-02-28 05:58] LABS: ANION GAP 7 mmol/L (7-16); CALCIUM 9.5 mg/dL (8.5-10.1); CHLORIDE 102 mmol/L (98-107); CO2 31 mmol/L (21-32); POTASSIUM 4.3 mmol/L (3.5-5.1); SODIUM 140 mmol/L (136-145)
[2019-02-28 05:59] LABS: BUN 29 mg/dL (7-18); GLUCOSE 109 mg/dL (70-99); PLATELET ESTIMATE ADEQUATE
[2019-02-28 06:00] LABS: ANISOCYTOSIS 1+; HYPOCHROMASIA 1+; MICROCYTES 1+; POIKILOCYTOSIS 1+
[2019-02-28 06:08] LABS: ALBUMIN 2.8 g/dL (3.4-5.0); ALKALINE PHOSPHATASE 171 U/L (46-116); SGOT 17 U/L (15-37); SGPT 24 U/L (30-65); TOTAL BILIRUBIN 0.3 mg/dL (<0.1-1.0); TOTAL PROTEIN 8.1 g/dL (6.4-8.2); TROPONIN-I LEVEL <0.06 ng/mL (<0.06)
[2019-02-28 06:58] LABS: URINE BILIRUBIN NEGATIVE (Negative); URINE BLOOD 1+ (Negative); URINE CLARITY SL CLOUDY; URINE COLOR YELLOW; URINE GLUCOSE-RANDOM NEGATIVE (Negative); URINE KETONES NEGATIVE (Negative); URINE LEUKOCYTES-REFLEX 3+ (Negative); URINE NITRITE-REFLEX POSITIVE (Negative); URINE PROTEIN TRACE (Negative); URINE UROBILINOGEN 0.2 E.U./dl (0.2-1.0)
[2019-02-28 07:06] LABS: CASTS None Seen /LPF (None Seen); CRYSTALS None Seen /LPF (None Seen); MUCUS 4-6 Moderate strn/LPF (None Seen); SQUAMOUS 0-3 Few /LPF (0-3); URINE RBC 3-10 Few /HPF (0-2); URINE WBC-REFLEX >25 Many /HPF (0-5)
--- NOTE | 2019-02-28 09:46 | EKG ---
[place] [address] ELECTROCARDIOGRAM REPORT Name: JAIME WASHINGTON Room: [place] [address] ADM IN [facility].#: [id number] Admission: 02/28/19 Attend Phys: Vibha Dwyer MD Discharge: Date of : 67 Report #: [id number] THIS REPORT FOR: //name// [facility] ED Test Date: 2019-02-28 Test Time: 05:08:21 Pat Name: JAIME WASHINGTON Department: Room: [facility] Gender: F Ore Washer: STEPHEN : 1965 Requested By: Leobardo Tamayo Order Number: [id number] MD: Mich Briggs Measurements Intervals [place] Rate: 80 P: 39 [place]: 136 QRS: 16 QRSD: 106 T: 35 QT: 396 QTc: 457 Interpretive Statements Sinus rhythm RSR' in V1 or V2, right VCD or RVH Compared to ECG 05/23/2018 05:00:03 Right ventricular hypertrophy now present RSR' in V1 or V2 now present Sinus tachycardia no longer present Myocardial infarct finding no longer present Electronically Signed On 02-28-2019 9:46:02 CDT by Mich Briggs [email or web address] <ELECTRONICALLY SIGNED> By: Mich Briggs MD, FAC 02/28/19 0946 0508 0508 Mich Briggs MD, FAC /EPI
--- NOTE | 2019-02-28 16:23 | NUR ---
WOUND NURSE: PATIENT SEEN FRO SHALLOW WOUND ON THE LEFT BUTTOCK CURRENTLY TREATED WITH WOUND VAC DRESSING. CLEANSED WITH SOAP AND WATER, RINSED WITH WATER, THEN PATTED DRY. APPLIED SKIN PREP TO INTACT PERIWOUND TISSUE, THEN APPLIED GRANUFOAM TO THE WOUND BED, THEN COVERED WITH TRANSPARENT DRAPE AND BRIDGED TRAC PAD AWAY FROM THE WOUND. SETTINGS: 150MMHG CONTINUOUS NEGATIVE PRESSURE, INTENSITY HIGH. WOUND MEASURED 2.0 X 2.0 X 0.2 CM; CONTAINSED RED, GRANULATION TISSUE IN THE WOUND BED, SMALL TO MODERATE AMOUNT OF SEROUSANGUINOUS DRAINAGE.
--- NOTE | 2019-02-28 19:08 | NUR ---
PATIENT ADMITTED TO ICU. FAMILY AT BEDSIDE. LEVOPHED STARTED. PATIENT RESPONDS TO VOICE.
[2019-03-01] VITALS (71 sets, daily range): BP systolic 72–171; BP diastolic 40–105
[2019-03-01 04:40] LABS: HEMATOCRIT 35.2 % (37.0-47.0); MCH 24.3 pg (26.0-34.0); MCHC 31.4 g/dL (28.0-37.0); MCV 77.4 fL (80.0-100.0); MPV 8.1 fl. (7.2-11.1); RBC 4.55 mil/uL (4.20-5.00); RDW-CV 21.6 % (10.5-14.5); WBC 8.5 thou/uL (4.0-11.0)
[2019-03-01 05:01] LABS: CALCIUM 8.7 mg/dL (8.5-10.1); CREATININE 0.9 mg/dL (0.6-1.3); MAGNESIUM 1.7 mg/dL (1.8-2.4); POTASSIUM 4.3 mmol/L (3.5-5.1)
--- NOTE | 2019-03-01 07:11 | NUR ---
PROGRESSING TOWARDS GOALS, FAMILY HERE HS AND UPDATED ON POC, HESITANT FOR PT TO RECEIVE SCHEDULED KEPPRA, STATES WORRIED THIS MEDICATION WOULD CAUSE SEDATION AND KEEP PT TO LETHARGIC TO EAT, PT STATES PT WAS VERY SEDATED SINCE ADMISSION, EDUCATED PT R/T MULTIPLE MEDICATIONS GIVEN TO STOP SEIZURE ACTIVITY AND SYMPTOMS OF POSTICTAL PERIOD IS FOLLOWING SEIZURES. PRINTED EDUCATION PROVIDED R/T GENERALIZED SEIZURE ACTIVITY IN ADULTS INCLUDING POSTICTAL PERIOD. NO SEIZURE LIKE ACTIVITY NOTED, LEVOPHED TITRATED OFF AT 0115 THIS AM, ANSWERING SIMPLE QUESTIONS ONE WORD ANSWERS APPROPRIATELY AT TIMES. NO ADVERSE EFFECTS IV ANTIBIOTICS NOTED. SAFETY MAINTAINED.
[2019-03-01 08:23] LABS: BE 0.7 mmol/L (-2 to +3); PCO2 41.3 mmHg (35.0-45.0); PO2 83.6 mmHg (75.0-100.0); pH 7.408 (7.340-7.450)
--- NOTE | 2019-03-01 13:56 | NUR ---
PT IS DEPENDENT FOR MOBILITY AND SELF-CARES. DISCHARGE OCCUPATIONAL THERAPY EVAL
--- NOTE | 2019-03-01 14:59 | NUR ---
ORDERS RECEIVED FOR P.T. EVAL AND TREAT. PT NOT ALERT, BUT SPOKE WITH PT'S SPOUSE. HE REPORTS PT HAS MS AND RECEIVES TOTAL CARE AT HOME FROM HIM AND OTHER FAMILY MEMBERS. HE REPORTS PT HAS A HOSPITAL BED WITH LOW AIRLOSS MATTRESS, WOUND VAC, AN OLDER NATALIE LIFT, A NEW ZERO-GRAVITY W/C WITH ALL CONTROL IN BACK OF W/C FOR CAREGIVER TO PUSH PT, ROHO CUSHION. SPOUSE REPORTS HE USES NATALIE LIFT TO ASSIST PT FROM BED UP INTO HIS TRUCK WHEN HE HAS TO HE CAN NO LONGER LIFT PT UP INTO HIS TRUCK DUE TO HERNIA AND KNEE MENISCUS ISSUES. SPOUSE REPORTS HE PROVIDES ALL CARE FOR PT AND STATES PT IS UNABLE TO EVEN TURN HERSELF IN BED. AFTER 15 MINUTE DISCUSSION WITH SPOUSE, NO SKILLED P.T. NEEDS IDENTIFIED AT THIS TIME PT'S PRIOR LEVEL IS TOTAL CARE AT HOME AND HAS BEEN FOR SOME TIME. SPOUSE REPORTS THAT WHEN PT IS ABLE, UE ROM AND POSSIBLY SOME TYPE OF HAND SPLINT MAY BE HELPFUL TO PT. WILL DEFER THAT TO O.T. SERVICES.
--- NOTE | 2019-03-01 19:53 | NUR ---
03/01 Days: Patient continues to be drowsy throughout the day. Folled minimal commands in the evening. Levo restarted around 1700, low dose, can probably wean back off now, report given to mine shifter.
[2019-03-02] VITALS (43 sets, daily range): BP systolic 124–173; BP diastolic 61–95
[2019-03-02 04:35] LABS: HEMATOCRIT 35.3 % (37.0-47.0); HEMOGLOBIN 11.1 gm/dL (12.0-15.0); MCH 24.2 pg (26.0-34.0); MCHC 31.5 g/dL (28.0-37.0); MCV 76.8 fL (80.0-100.0); MPV 8.3 fl. (7.2-11.1); RBC 4.6 mil/uL (4.20-5.00); RDW-CV 21.5 % (10.5-14.5); WBC 7.6 thou/uL (4.0-11.0)
[2019-03-02 04:46] LABS: ALBUMIN 2.3 g/dL (3.4-5.0); CALCIUM 9.1 mg/dL (8.5-10.1); MAGNESIUM 1.9 mg/dL (1.8-2.4); POTASSIUM 4.6 mmol/L (3.5-5.1); TOTAL BILIRUBIN 0.4 mg/dL (<0.1-1.0); TOTAL PROTEIN 7.2 g/dL (6.4-8.2)
--- NOTE | 2019-03-02 07:00 | NUR ---
PROGRESSING TOWARDS GOALS, LEVOPHED GTT OFF AT 1945, AWAKENS TO VERBAL STIMULI, C/O PAIN WITH REPOSITIONING THAT RESOLVES WITH REST. RESP EVEN AND NONLABORED, REMAINS NSR TRACING BUCKLE SEWER MACHINE, NO SEIZURE ACTIVITY NOTED, AFEBRILE, AND SON AT BEDSIDE DURING EVENING, UPDATED FAMILY POC, REPOSITIONING Q2 AND PRN FOR COMFORT AND TO MAINTIAIN SKIN INTEGRITY. SAFETY MAINTAINED.
--- NOTE | 2019-03-02 18:56 | NUR ---
03/02 Days: Patient more awake in the am, drowsy all afternoon. states normal sleep schedule for her. levo remained off. Uneventful shift.
[2019-03-03] VITALS (24 sets, daily range): BP systolic 141–178; BP diastolic 49–102
[2019-03-03 04:29] LABS: HEMATOCRIT 37.2 % (37.0-47.0); HEMOGLOBIN 11.8 gm/dL (12.0-15.0); MCH 24.4 pg (26.0-34.0); MCHC 31.7 g/dL (28.0-37.0); MPV 8.6 fl. (7.2-11.1); RBC 4.83 mil/uL (4.20-5.00); RDW-CV 21.9 % (10.5-14.5); WBC 8.4 thou/uL (4.0-11.0)
[2019-03-03 04:51] LABS: CALCIUM 9.4 mg/dL (8.5-10.1); CREATININE 0.9 mg/dL (0.6-1.3); MAGNESIUM 2.1 mg/dL (1.8-2.4); POTASSIUM 5.1 mmol/L (3.5-5.1)
--- NOTE | 2019-03-03 06:36 | NUR ---
PROGRESSING TOWARDS GOALS, AWAKES WITH EYES OPEN TO VERBAL STIMULI, ONE WORD RESPONSES AT TIMES WITH FAMILY, HOLLERING OUT OUCH WITH REPOSITIONING, NO SEIZURE LIKE ACTIVITY, NO NEED FOR VASOPRESSORS MAP REMAINS =>65, AND SON UPDATED POC DURING EVENING, WOODRUFF PATENT DD LIGHT YELLOW URINE. NSR TRACING CARDIAC MONIITOR, REPOSITIONED Q2 HOURS TO PROMOTE COMFORT AND SKIN INTEGRITY. SAFETY MAINTAINED.
--- NOTE | 2019-03-03 07:10 | CON ---
[address] [address] CONSULTATION Name: JAIME WASHINGTON Room: [address] IN M.R.#: [id number] Admission: 02/28/19 Attend Phys: Vibha Dwyer MD Discharge: Date of : 67 Report #: [id number] THIS REPORT FOR: //name// CC: Julien Dwyer DATE OF SERVICE: 02/28/2019 INFECTIOUS DISEASE CONSULTATION ATTENDING PHYSICIAN: Dr. Dwyer. REASON FOR EVALUATION: Complicated urinary tract infection. HISTORY OF PRESENT ILLNESS: Chart reviewed, patient examined. This is a 53-year-old woman known to myself who has advanced multiple sclerosis, essentially is total care who was taken care of by her family, her was with her, fed her. She did well last evening, subsequently went to bed. He heard a loud noise, went there and she had forcefully turned her head to the right. She was not responsive. It somewhat subsided within a minute only and recurred at least twice. He called the ambulance. The third episode was witnessed as well. She had a fourth episode while in the Emergency Room. She was found to be hypotensive. Evaluation thus far is ongoing. CT of the head was without evidence of intracranial hemorrhage. Urinalysis did show greater than 25 white cells, 10-30 bacteria. Chest x-ray, some mild vascular congestion. At this point, she is essentially nonresponsive. She was given a dose of ceftriaxone. ALLERGIES: None known. CURRENT MEDICATIONS: Include enoxaparin, levetiracetam, sevelamer, vitamin, famotidine, lorazepam, ondansetron. Did receive the single dose of ceftriaxone. PAST MEDICAL HISTORY: As described above, multiple sclerosis diagnosed perhaps 30 years ago, has fairly advanced age, history of decubitus ulcer. Also, has longstanding suprapubic catheter changed monthly by her . SOCIAL HISTORY: Former smoker. No ethanol, no illicit drug use. FAMILY HISTORY: Noncontributory. REVIEW OF SYSTEMS: Unobtainable. PHYSICAL EXAMINATION: GENERAL: She is minimally responsive at this point. [place] [address] CONSULTATION Name: JAIME WASHINGTON Pee Room: [address]#: [id number] Admission: 02/28/19 Attend Phys: Vibha Dwyer MD Discharge: Date of : 67 Report #: [id number] Emergency Room. She is on supplemental oxygen per nasal cannula. Hemodynamically, she is quite labile with systolic blood pressures in the 70s, seemingly receiving fluid boluses. VITAL SIGNS: Temperature is 95, pulse 53, respirations 18, blood pressure is 86/41. SKIN: Warm. NECK: Appears to be supple. LUNGS: Diminished breath sounds. HEART: Borderline bradycardic, regular. I do not appreciate a murmur. ABDOMEN: Soft. There is no apparent tenderness. There are peritoneal signs. GENITOURINARY AND RECTAL: Deferred. LABORATORY DATA: Troponin less than 0.06. CT of the head without evidence of hemorrhagic stroke. Urinalysis show greater than 25 white cells, 10-30 bacteria. Electrolytes: Sodium 140, potassium 4.3, chloride 102, bicarbonate was 31, anion gap of 7, BUN and creatinine 29 and 1.0, glucose of 109. LFTs unremarkable. Albumin of 2.8. Total protein of 8.1. White count of 10.5, H and H 12.0 and 37.4, platelets of 305. Lactic acid 0.8. ASSESSMENT AND PLAN: Suspected seizure activity. It is not clear as to the etiology. Neurological evaluation in progress, does appear to have some at least pyuria, I do not know if this would account for particular situation given the pattern of hypothermia and bradycardia and hemodynamic lability. I think it is reasonable to continue empiric antimicrobial therapy. We will await culture results including blood and urine. <ELECTRONICALLY SIGNED> By: Kashmir Herron MD 03/03/19 0710 [id number] Herron MD /nt
--- NOTE | 2019-03-03 10:42 | NUR ---
RE: pharmacy to mangage TPN. Pt wgt: 82.9 kg (>120% IBW, will use feeding weight of 63.5 kg). BEE =1317 kcal/24 hr x stress factor of 1.2 = 1580 kcal/24 hr. Will provide 0.9 gm/kg/day of protein (balancing wound healing needs with increassed BUN, LFT's). Will start TPN at 57.6 gm protein/day + dextrose/lipid (non-protein) calories at ~ 1185/day. TPN at goal rate to provide ~ 1415 kcal/day. Will follow. thank you.
--- NOTE | 2019-03-03 12:29 | EEG ---
[address] [address] EEG STUDY REPORT Name: JAIME WASHINGTON Room: [address] IN .R.#: [id number] Admission: 02/28/19 Attend Phys: Vibha Dwyer MD Discharge: Date of : 67 Report #: [id number] THIS REPORT FOR: //name// CC: Julien Dwyer DATE OF SERVICE: 02/28/2019 This patient is being evaluated for the possibility of seizure. EEG was done by placing the electrodes by standard 10-20 system of electrode placement. Both referential and sequential montages were used for recording. Background activity in this patient's EEG is about 8 Hz and 30 microvolt. Photic stimulation is unremarkable. The patient's EEG continued to demonstrate some theta range slowing on both sides. IMPRESSION: Moderately abnormal EEG because it is intermixed with theta range slowing on both sides. That is a nonspecific abnormality, which can occur with encephalopathy, effect of psychotropic medication, dementia, etc. No active epileptiform activity was noticed during this record. Thank you very much for this referral. <ELECTRONICALLY SIGNED> By: Phil Small MD 03/03/19 1229 [id number] Small MD /nt
--- NOTE | 2019-03-03 12:29 | CON ---
[address] [address] CONSULTATION Name: JAIME WASHINGTON Room: [address] IN M.R.#: [id number] Admission: 02/28/19 Attend Phys: Vibha Dwyer MD Discharge: Date of : 67 Report #: [id number] THIS REPORT FOR: //name// CC: Julien Dwyer DATE OF SERVICE: 02/28/2019 HISTORY OF PRESENT ILLNESS: This is a 53-year-old female patient who is unable to provide any history. She is not responsive. I talked to the family and they also provide not a very good history. The only history I get is that this patient has a diagnosis of multiple sclerosis. This is a longstanding diagnosis. I do not know which neurologist they had seen in the past, but apparently she has not seen a neurologist for 20 years. At one time, she was on Copaxone. She felt that Copaxone made her worse. She stopped taking it. She tried a few other medications and that also she stopped after sometime for unclear reasons. Her baseline status does not appear to be good. She is having a pretty significant disability and a neurological deficit. I have not seen her in the past and from the history, I cannot tell very much how disable she was but looks like she was significantly compromised. She has limited movement in the upper and lower extremity. She was admitted with seizure. She apparently had a seizure 15 years ago according to the family that was because of steroids. She had another seizure today. Evaluation was carried out and will be summarized below. The is concerned with multiple things. She has been given Keppra. She is pretty unresponsive, but has not had any further seizure. REVIEW OF SYSTEMS: Positive for multiple sclerosis, but I cannot get a good history what the status in that regard is. She has not seen a neurologist for a long time. Her multiple sclerosis appeared to have caused her significant abnormality. That was a relevant 14-point review of systems. PAST MEDICAL HISTORY: Positive for MS. SOCIAL HISTORY: She has a family and they were here and I talked to her. PHYSICAL EXAMINATION: NEUROLOGIC: Her examination is pretty limited. She did not respond to me at all. She did not even open her eyes. That made it impossible to carry out rest of the neurological examination, although that was attempted. I cannot tell about motor, strength, sensation. There is no meningeal sign the best I can tell. CARDIAC: Unremarkable. RESPIRATORY: Unremarkable. VITAL SIGNS: Last blood pressure was low at 86/41, respirations 18, [place] 63[place] [address] CONSULTATION Name: PADMINIJAIME Room: [address] IN M.R.#: [id number] Admission: 02/28/19 Attend Phys: Vibha Dwyer MD Discharge: Date of : 67 Report #: [id number] LABORATORY DATA: White count is normal. She did have a CT scan of the head, which demonstrated significant chronic diseases, but nothing acute. IMPRESSION: 1. 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 2. What looks like advance multiple sclerosis. RECOMMENDATIONS: 1. Continue Keppra. 2. Monitor closely. 3. I would like to get an MRI done, but I am not sure how stable she is to go for MRI. We will consult other career consultant and then decide about that. That was discussed with the family and family wants to follow this plan. <ELECTRONICALLY SIGNED> By: Phil Small MD 03/03/19 1229 [id number] Small MD /nt
--- NOTE | 2019-03-03 13:47 | NUR ---
WOUND NURSE: PATIENT SEEN FOR WOUND VAC DRESSING CHANGE ON LEFT BUTTOCK. CLEANSED WITH SOAP AND WATER, RINSED WITH WATER, THEN PATTED DRY. APPLIED SKIN PREP TO INTACT PERIWOUND TISSUE, THEN APPLIED GRANUFOAM UNDER TRANSPARENT DRESSING AND BRIDGED TRAC PAD AWAY FROM THE WOUND. WOUND PRESENTS WITH 100% PINKISH RED GRANULATION TISSUE AND MEASURES 2.0 X 1.5 X 0.2 CM. THERE IS MODERATE AMOUNT OF SEROUS DRAINAGE NOTED.
--- NOTE | 2019-03-03 18:50 | NUR ---
03/03 Days: Patient drowsy and lethargic all day. Was reported she was awake most the night. Per normal sleep schedule is sleeping in the day and awake most the night. Repeat EEG completed, awaiting results. Possible MRI spine in the near future. Home dose Desmopressin started. I and O even today. Wound vac changed
[2019-03-04] VITALS (37 sets, daily range): BP systolic 61–155; BP diastolic 28–86
--- NOTE | 2019-03-04 06:05 | NUR ---
VITALS STABLE, AFEBRILE. PATIENT SLEPT THROUGH THE NIGHT. OPENS EYES WHEN BEING TURNED. Q2 TURNS FOR SKIN INTEGRITY. OTHERWISE UNEVENTFUL NIGHT.
--- NOTE | 2019-03-04 08:52 | NUR ---
1569 ASSUMED CARE OF PATIENT. SEE DOCUMENTED ASSESSMENT. DR MAY TO SEE PATIENT. PT IS NONVERBAL. SEIZURE PRECAUTIONS IN PLACE. OFF OF LEVOPHED DRIP
--- NOTE | 2019-03-04 09:54 | NUR ---
INITIAL ASSESSMENT: Pt evaluated for d/c planning needs. Reviewed chart and spoke with nurse, pt, spouse and son at bedside. Pt has advanced MS and lives at home with and son. Pt is confined to bed and requires total care. Pt is not able to feed or groom herself. Spouse provides all care for pt. Pt has hospital bed with low air loss mattress at home, w/c, johnathan lift. Plan is for pt to return home with on d/c from hospital. Will remain available to assist as needed.
[2019-03-04 10:09] LABS: URINE BILIRUBIN NEGATIVE (Negative); URINE BLOOD 1+ (Negative); URINE CLARITY CLEAR; URINE COLOR YELLOW; URINE GLUCOSE-RANDOM NEGATIVE (Negative); URINE KETONES NEGATIVE (Negative); URINE NITRITE-REFLEX NEGATIVE (Negative); URINE PROTEIN NEGATIVE (Negative); URINE UROBILINOGEN 0.2 E.U./dl (0.2-1.0)
[2019-03-04 10:17] LABS: URINE LEUKOCYTES-REFLEX 2+ (Negative)
[2019-03-04 10:41] LABS: BACTERIA-REFLEX 1-9 Few /HPF (None Seen); CASTS None Seen /LPF (None Seen); CRYSTALS None Seen /LPF (None Seen); MUCUS 0-3 Light strn/LPF (None Seen); SQUAMOUS 0-3 Few /LPF (0-3); URINE RBC 0-2 Rare /HPF (0-2)
[2019-03-04 11:30] LABS: ALBUMIN 2.6 g/dL (3.4-5.0); CALCIUM 9.5 mg/dL (8.5-10.1); CREATININE 1.1 mg/dL (0.6-1.3); PHOSPHORUS* 3.6 mg/dL (2.5-4.9); POTASSIUM 4.5 mmol/L (3.5-5.1); TOTAL BILIRUBIN 0.3 mg/dL (<0.1-1.0); TOTAL PROTEIN 8.3 g/dL (6.4-8.2)
--- NOTE | 2019-03-04 13:28 | NUR ---
PATIENT IS TELEMETRY STATUS
--- NOTE | 2019-03-04 18:03 | NUR ---
PATIENT HAS BEEN PROGRESSING TOWARDS GOALS AND HAD BEEN CHANGED TO TELEMETRY STATUS. HOWEVER,BECAME HYPOTENSIVE AT 1700 AND FLUID BOLUS IS NOW INFUSING. WILL REMAIN IN ICU OVERNIGHT. FAMILY INFORMED. PT OPENS EYES MORE OFTEN. NO SEIZURE ACTIVITY. SEEN BY SPEECH BUT REMAINS NPO. WOUND VAC INTACT TO LEFT BUTTOCK. PLAN IS TO CONTINUE TO EVALUATE SWALLOW BUT IS CURRENTLY ON TPN.
[2019-03-05] VITALS (27 sets, daily range): BP systolic 101–153; BP diastolic 53–94
[2019-03-05 04:39] LABS: CALCIUM 9.4 mg/dL (8.5-10.1); CREATININE 1.1 mg/dL (0.6-1.3); POTASSIUM 4.6 mmol/L (3.5-5.1)
--- NOTE | 2019-03-05 05:09 | NUR ---
VITALS STABLE, AFEBRILE. LEVOPHED TITRATED OFF WITH MAP >65. TPN RUNNING. PATIENT OPENS EYES SPONTANEOUSLY, SLEPT FOR A FEW HOURS. WAS ABLE TO OPEN EYES PER COMMAND, BUT OTHERWISE UNABLE TO FOLLOW COMMANDS. NO SEIZURE ACTIVITIES THIS SHIFT. Q2 TURNS FOR SKIN INTEGRITY.
--- NOTE | 2019-03-05 13:10 | NUR ---
WOUND NURSE- PATIENT REMAINS IN ICU, HAS EYES OPEN BUT NO VERBAL RESPONSES. AND SON AT BEDSIDE. STATES THAT SHE BECOME NON-RESPONSIVE AFTER ANTIBIOTICS ADMINISTERED, AND IS NORMALLY VERBAL. PROVIDES LONG HISTORY OF WOUNDS, AND IS SOMEWHAT INSISTENT ON CONTINUING WOUND VAC, HE BELIEVES THAT IT IS THE BEST OPTION FOR WOUND HEALING AND ALSO PREVENTS CONTAMINATION OF WOUND WITH FECAL INCONTINENCE. WOUND VAC DRESSING REMOVED, AND PATIENT WITH 2 X 1.6 CM WOUND WITH NO DEPTH, AND SLIGHT HYPERGRANULATION OF FRIABLE RED TISSUE. NO DRAINAGE NOTED. SURROUNDING SKIN WITH MACERATION AND SCARRING, EDGES NON-PROLIFERATIVE. ADJACEMT SKIN WITH 2 VERY SMALL SKIN TEARS, APPARENTLY FROM DRAPE. OVERALL SKIN IN AREA WITH EXTENSIVE SCARRING. ATTEMPTED TO EXPLAIN TO PATIENT THAT WOUND NOT BENEFITTING FROM WOUND VAC, NO NEED FOR FURTHER GRANULATION TISSUE, AND NOW NEEDS TO EPITHELIALIZE. DR MAY ARRIVED TO SEE PATIENT, AND REINFORCED RECOMMENDATIONS. SOMEWHAT RELUCTANTLY AGREED TO DISCONTINUING WOUND VAC. RECOMMENDED FOAM DRESSING TO ADDRESS HYPERGRANULATION AND PROMOTE EPITHELIALIZATION, BUT INSISTS ON AQUACEL AG AND TRANSPARENT DRESSING, TO PREVENT CONTAMINATION. AREA CLEANSED WELL, AND AQUACEL AG AND SURESITE APPLIED. REPORTS THAT AT HOME PATIENT ALTERNATES BETWEEN HOSPITAL BED WITH LOW AIR LOSS MATTRESS AND WHEELCHAIR WITH ROHO CUSHION. REINFORCED THE IMPORTANCE OF MINIMIZING SITTING, WOUND OVERLIES ISCHIAL TUBEROSITY. QUESTIONED REGARDING POSSIBILITY OF COLOSTOMY, TO PREVENT FECAL CONTAMINATION OF WOUNDS (HE IS VERY FOCUSED ON), BUT HE REPORTS THAT PATIENT HAS ADAMANTLY REFUSED. ENCOURAGED HIM TO RECONSIDER AT SOME POINT, WOULD BE MUCH EASIER TO MANAGE THAN FECAL INCONTINENCE.
--- NOTE | 2019-03-05 15:18 | NUR ---
1445: Home supra-pubic catheter changed out. U/A sent post change per ID
[2019-03-05 15:29] LABS: URINE BILIRUBIN NEGATIVE (Negative); URINE BLOOD 3+ (Negative); URINE CLARITY CLEAR; URINE COLOR YELLOW; URINE GLUCOSE-RANDOM NEGATIVE (Negative); URINE KETONES NEGATIVE (Negative); URINE LEUKOCYTES-REFLEX 1+ (Negative); URINE NITRITE-REFLEX NEGATIVE (Negative); URINE PROTEIN TRACE (Negative); URINE UROBILINOGEN 0.2 E.U./dl (0.2-1.0)
[2019-03-05 15:54] LABS: HYALINE CASTS 0-3 Few /LPF (None Seen); SQUAMOUS 0-3 Few /LPF (0-3)
[2019-03-05 15:55] LABS: BACTERIA-REFLEX 1-9 Few /HPF (None Seen); CRYSTALS None Seen /LPF (None Seen); MUCUS None Seen strn/LPF (None Seen); URINE WBC-REFLEX 0-5 Rare /HPF (0-5)
--- NOTE | 2019-03-05 17:27 | 2DMMODE ---
[place] [address] 2 D/M-MODE ECHOCARDIOGRAM Name: JAIME WASHINGTON Room: [address] IN [facility]#: [id number] Admission: 02/28/19 Attend Phys: Vibha Dwyer, Discharge: Date of : 67 Date of Service: 03/05/19 1727 Report #: [id number] THIS REPORT FOR: //name// APPROVED REPORT Study performed: 03/05/2019 14:43:06 EXAM: Comprehensive 2D, Doppler, and color-flow Echocardiogram Patient Location: In-Patient Room #: [facility] Status: routine BSA: 1.90 HR: 81 bpm BP: 132/69 mmHg Other Information Study Quality: Good Indications Hypotension seizure 2D Dimensions IVSd: 10.71 (7-11mm) LVOT Diam: 19.79 (18-24mm) LVDd: 40.63 mm PWd: 9.91 (7-11mm) Ascending Ao: 25.54 (22-36mm) LVDs: 19.14 (25-40mm) Aortic Root: 23.66 mm Volumes Left Atrial Volume (Systole) LA ESV Index: 15.30 mL/m2 Aortic Valve AoV Peak Delfino.: 1.24 m/s AO Peak Gr.: 6.16 mmHg LVOT Max P.94 mmHg AO Mean Gr.: 3.47 mmHg LVOT Mean P.81 mmHg LVOT Max V: 0.99 m/s AO V2 VTI: 24.39 cm LVOT Mean V: 0.61 m/s GENEVIEVE (VTI): 2.78 cm2 LVOT V1 VTI: 22.04 cm Mitral Valve E/A Ratio: 0.84 MV Decel. Time: 147.11 ms MV E Max Delfino.: 0.74 m/[place] [address] 2 D/M-MODE ECHOCARDIOGRAM Name: JAIME WASHINGTON Room: [address] IN ..#: [id number] Admission: 02/28/19 Attend Phys: Vibha Dwyer, Discharge: Date of : 67 Date of Service: 03/05/19 1727 Report #: [id number] MV PHT: 42.66 ms MVA (PHT): 5.16 cm2 TDI E/Lateral E': 7.40 E/Medial E': 10.57 Medial E' Delfino.: 0.07 m/s Lateral E' Delfino.: 0.10 m/s Pulmonary Valve PV Peak Delfino.: 0.96 m/s PV Peak Gr.: 3.66 mmHg Left Ventricle The left ventricle is normal size. There is normal LV segmental wall motion. There is normal left ventricular wall thickness. Left ventricular systolic function is normal. LVEF is 60-65%. Grade I - abnormal relaxation pattern. Right Ventricle The right ventricle is normal size. The right ventricular systolic function is normal. Atria The left atrium size is normal. The right atrium size is normal. Aortic Valve The aortic valve is normal in structure. No aortic regurgitation is present. There is no aortic valvular stenosis. Mitral Valve The mitral valve is normal in structure. Mild mitral regurgitation. No evidence of mitral valve stenosis. Tricuspid Valve The tricuspid valve is normal in structure. There is no tricuspid valve regurgitation noted. Pulmonic Valve The pulmonary valve is normal in structure. There is no pulmonic valvular regurgitation. Great Vessels The aortic root is normal in size. IVC is normal in size and collapses >50% [place] [address] 2 D/M-MODE ECHOCARDIOGRAM Name: JAIME WASHINGTON Room: [address]#: [id number] Admission: 02/28/19 Attend Phys: Vibha Dwyer, Discharge: Date of : 67 Date of Service: 03/05/19 1727 Report #: [id number] There is no pericardial effusion. <Conclusion> The left ventricle is normal size. There is normal left ventricular wall thickness. Left ventricular systolic function is normal. LVEF is 60-65%. Grade I - abnormal relaxation pattern. Mild mitral regurgitation. IVC is normal in size and collapses >50% with inspiration. <ELECTRONICALLY SIGNED> By: Duke Rock MD, MERGED WITH [facility] 03/05/191726 26 26 Duke Rock MD, FAC /INF
--- NOTE | 2019-03-05 18:22 | NUR ---
03/05: Patient seemed more alerat throughout the day. Did not follow commands but did speak a few words to . Spontaneous eye opening and tracking today. Supra-pubic catheter changed out and u/a repeat sent post per ID. Continuing TPN. ECHO today. Wound Vac discontined, aqua-cell AG with sure-site in place.
[2019-03-06] VITALS (13 sets, daily range): BP systolic 85–159; BP diastolic 51–87
[2019-03-06 04:26] LABS: HEMATOCRIT 37.8 % (37.0-47.0); MCH 24.3 pg (26.0-34.0); MCHC 31.8 g/dL (28.0-37.0); MCV 76.5 fL (80.0-100.0); MPV 8.2 fl. (7.2-11.1); RBC 4.94 mil/uL (4.20-5.00); RDW-CV 21.9 % (10.5-14.5); WBC 10.4 thou/uL (4.0-11.0)
[2019-03-06 04:44] LABS: ALBUMIN 2.8 g/dL (3.4-5.0); CALCIUM 9.2 mg/dL (8.5-10.1); CREATININE 0.9 mg/dL (0.6-1.3); POTASSIUM 4.5 mmol/L (3.5-5.1); TOTAL BILIRUBIN 0.3 mg/dL (<0.1-1.0); TOTAL PROTEIN 8.3 g/dL (6.4-8.2)
--- NOTE | 2019-03-06 07:19 | NUR ---
ASSESSMENT CHARTED. VSS. PATIENT MOSTLY NON RESPONSIVE DURING SHIFT. WILL RESPOND TO PAIN AND MOVEMENT, NO VERBAL RESPONSES DURING SHFIT. PATIENT REMAINED FREE FROM SEIZURES. FAMILY AT BEDSIDE AND STAYING IN WAITING ROOM. DOES NOT WANT PATIENT TURNED ON LEFT SIDE AND TURNED PATIENT OFF HER SIDE AFTER I HAD TURNED HER THERE. REMAINED OFF LEVOPHED. WILL CONTINUE TO MONITOR.
--- NOTE | 2019-03-06 10:23 | NUR ---
PATIENT REMAINS OBTUNDED. AFEBRILE VITAL SIGNS WNL. TRANSFERED TO RM 226 REPORT GIVEN TO PADMINI. AND SON AT BESIDE
--- NOTE | 2019-03-06 14:19 | NUR ---
VSS, ASSUMED CARE OF PT FROM ICU, ASSESSEMTN PERFORMED AND I AGREE WITH ICU FINDINGS, PT GOAL IS TO SIT UP IN BED AND RESUME ORAL INTAKE, PT IS ALERT TO SELF, AND SPEAKS FEW WORDS, PT IS TRACING SR ON THE MONITOR, SHE IS A FEEDER, ON RA AND HAS WOODRUFF IN PLACE AND IS DRAINING, SHE DENIES ANY PAIN, SHE IS A Q2 TURN, FAMILY AT THE BEDSIDE, WILL FOLLOW WITH PLAN OF CARE.
[2019-03-07 00:54] VITALS: BP 108/59
[2019-03-07 04:30] VITALS: BP 121/87
[2019-03-07 05:22] LABS: ALBUMIN 2.6 g/dL (3.4-5.0); CALCIUM 9.3 mg/dL (8.5-10.1); CREATININE 0.9 mg/dL (0.6-1.3); PHOSPHORUS* 3.7 mg/dL (2.5-4.9); POTASSIUM 4.2 mmol/L (3.5-5.1)
[2019-03-07 07:00] VITALS: BP 123/61
--- NOTE | 2019-03-07 10:15 | NUR ---
CONTINUE TO FOLLOW, MET WITH SPOUSE. PLAN HOME AT [place] WITH [facility]. PT WILL NEED AMBULANCE TRANSPORT HOME S[facility] [phone] FAX [phone]
[2019-03-07 12:00] VITALS: BP 116/57
[2019-03-07 16:00] VITALS: BP 111/68
--- NOTE | 2019-03-07 17:37 | NUR ---
ASSESSMENT COMPLETE. PT SLEEPING MOST OF THE DAY. SPOUSE AND SON AT BEDSIDE THROUGHOUT THE DAY. PT EATING 25-50% OF MEALS. PT GIVEN ENSURE PUDDING TWICE TODAY. PT HAS TPN INFUSING AT 60. IV KEPPRA GIVEN, SEIZUE PRECAUTIONS IN PLACE. CATHETER IN PLACE WITH ADEQAUTE OUTPUT. Q2 TURN. PT HAD COMPLETE BED BATH TODAY. SEE ASSESSMENT AND VITALS FOR OTHER DETAILS. CALL LIGHT WITHIN REACH, WILL CONTINUE PLAN OF CARE
[2019-03-07 20:00] VITALS: BP 106/66
[2019-03-08] VITALS (19 sets, daily range): BP systolic 74–140; BP diastolic 33–80
--- NOTE | 2019-03-08 18:14 | NUR ---
ASSUMED PT CARE REPORT RECEIVED FROM NURSE. PT IS AOX2 LETHARGIC, SLEEPING. IN ROOM, VERY PLEASANT. KEPPRA GIVEN. PT UNABLE TO SWALLOW PILL DUE TO EXTREME LETHARGY. Q2TURN PERFORMED. IV TPN GIVEN. WOUND CARE PERFORMED. BED BATH GIVEN. WILL CONTINUE TO MONITOR
[2019-03-09] VITALS (37 sets, daily range): BP systolic 92–169; BP diastolic 53–90
--- NOTE | 2019-03-09 01:55 | NUR ---
ASSUMED CARE AT 2250H, ON ROOM AIR AND DROWSY.BP UPON ARRIVAL WAS 105/59.KEPT PT COMFORTABLE AND MONITOR VITAL SIGNS.
[2019-03-09 03:24] LABS: HEMATOCRIT 33.9 % (37.0-47.0); HEMOGLOBIN 10.6 gm/dL (12.0-15.0); MCH 24.4 pg (26.0-34.0); MCHC 31.3 g/dL (28.0-37.0); MCV 77.9 fL (80.0-100.0); RBC 4.35 mil/uL (4.20-5.00); RDW-CV 21.6 % (10.5-14.5); WBC 12.7 thou/uL (4.0-11.0)
[2019-03-09 03:36] LABS: ALBUMIN 2.6 g/dL (3.4-5.0); CALCIUM 9.5 mg/dL (8.5-10.1); CREATININE 1.3 mg/dL (0.6-1.3); MAGNESIUM 1.8 mg/dL (1.8-2.4); PHOSPHORUS* 3.5 mg/dL (2.5-4.9); POTASSIUM 4.9 mmol/L (3.5-5.1)
--- NOTE | 2019-03-09 05:53 | NUR ---
HIM CALLED AND INFORM HIM PT BP WAS STABLE AND NO PRESSOR GIVEN.ACCORDING TO HIM, SHE MIGHT BE BACK TO TELE AFTER 12 TO 24H IF STABLE.INFORM ABOUT THE PLAN.CONTINUE MONITORING AND TOWARDS GOAL.
--- NOTE | 2019-03-09 06:25 | NUR ---
APPON ASSESSMENT BP WAS LOW, FAMILY INFORMED NURSE THAT BP WAS WNL LESS THAN AN HOUR AGO. MAP APON ASSESSMENT WNL. APPOX 20 LATER PT BP DEC AND MAP BELOW 60. BP TAKEN APPROX EVERY 15 MIN AND SYSTOLIC BP CONTINUED TO BE BELOW 90. PROVIDER NOTIFED. BOLUS ORDERED. AFTER BOLUS BP STILL BELOW 90. NEW ORDERS TO TRANSFER TO ICU FOR BP MANAGEMENT. NEW ORDER RECEIVED, PT TO ICU APPROX 2240.
--- NOTE | 2019-03-09 09:23 | NUR ---
PATIENT MORE ALERT DENIES PAIN OR SOA. VERBAL AND TRACKING WITH EYES. BP WNL WITHOUT PRESSORS. TAKING PO AURELIA.
--- NOTE | 2019-03-09 19:30 | NUR ---
PATIENT BP STABLE WNL DR VIRAMONTES IN TO SEE. MAKING RCOMENDATIONS. PT REFUSINGBIPAP. NOW HAS TELE ORDERS.
--- NOTE | 2019-03-09 21:57 | NUR ---
ASSUMED CARE AT 1900H, ON ROOM AIR, AWAKE AND MORE ALERT.BP STABLE AND FOR TELE TRANSFER.REPORT GIVEN TO SIOMARA CHAWLA AND THEY TOOK PT VIA BED AT 2130H TO ROOM 223.
[2019-03-10] VITALS: BP 127/78
[2019-03-10 04:00] VITALS: BP 155/73
[2019-03-10 05:08] LABS: ABSOLUTE LYMPHOCYTES 2.1 thou/uL (0.8-5.3); ABSOLUTE MONOCYTES 0.5 thou/uL (0.0-1.2); ABSOLUTE NEUTROPHILS 11.3 thou/uL (1.6-8.1); BASOPHILS 0.3 %; HEMATOCRIT 32.8 % (37.0-47.0); HEMOGLOBIN 10.5 gm/dL (12.0-15.0); LYMPHOCYTES 15.2 %; MCH 24.9 pg (26.0-34.0); MCV 77.9 fL (80.0-100.0); MONOCYTES 3.6 %; NUCLEATED RBCS 0 /100WBC; PLATELET COUNT* 255 thou/uL (150-400); POLYS 80.9 %; RBC 4.21 mil/uL (4.20-5.00); WBC 13.9 thou/uL (4.0-11.0)
[2019-03-10 05:47] LABS: ALBUMIN 2.5 g/dL (3.4-5.0); CALCIUM 9.3 mg/dL (8.5-10.1); CREATININE 1.1 mg/dL (0.6-1.3); MAGNESIUM 1.9 mg/dL (1.8-2.4); POTASSIUM 4.3 mmol/L (3.5-5.1); TOTAL BILIRUBIN 0.2 mg/dL (<0.1-1.0); TOTAL PROTEIN 7.6 g/dL (6.4-8.2)
[2019-03-10 06:07] LABS: PLATELET ESTIMATE ADEQUATE
[2019-03-10 06:08] LABS: ANISOCYTOSIS 1+; POIKILOCYTOSIS 1+
--- NOTE | 2019-03-10 06:47 | NUR ---
PT TO FLOOR APPROX 2114 AND ASSUMED CARE. VSS. FALL PRECAUTIONS IN PLACE. HOURLY ROUNDING FOR SAFETY.
--- NOTE | 2019-03-10 09:02 | CON ---
[address] [address] CONSULTATION Name: JAIME WASHINGTON Room: [address] IN .R.#: [id number] Admission: 02/28/19 Attend Phys: Vibha Dwyer MD Discharge: Date of : 67 Report #: [id number] THIS REPORT FOR: //name// CC: Julien Dwyer Consult has been requested by ____. INDICATION FOR CONSULTATION: Evaluation of critical care issues/recurrent hypotension. HISTORY OF PRESENT ILLNESS: A 53-year-old female, she does not have any known history of smoking as discussed below. She does appear to have previously undiagnosed obstructive sleep apnea. Otherwise, she is not known to have a cardiac or respiratory disease in the past. The patient does have a history of multiple sclerosis. She has had decubitus ulcers and does have a longstanding suprapubic catheter as well as diabetes insipidus. The patient at this time is admitted with seizures and is noted to have been treated during this hospitalization for a complicated UTI in addition to decubitus ulcers. The patient is noted to have had several episodes of hypotension during this hospitalization, the etiology of which are not fully defined. The patient was initially in the ICU and was transferred to the floor, but will need to be transferred back to the ICU overnight due to hypotension. The patient's in fact checks the blood pressure himself, very frequently. He states that he has been checking it at least every hour while the patient was on the floor, as it appears that he felt that the blood pressure needs to be checked more frequently than every 4 hours as he was being done on the floors. The patient's states that he detected blood pressures up to 65 systolic and had therefore alerted the staff. There are blood pressures up to 74 systolic, which are in fact charted in [facility] as well. The patient is reported to have been in fact more awake than usual and the blood pressure had dropped. The patient was given Solu-Medrol at that time and is reported to have had immediate increase in blood pressure after the administration of Solu-Medrol. The patient few days ago did have an a.m. cortisol level, which was low at 5.2. This was done on 03/06/2019. Overnight the patient did receive IV fluids. She, however, did not require pressors at this time. The patient is on room air, blood pressure is within the normal range. The patient does not have any shortness of breath, does not have any other respiratory complaints. The patient does need assistance with feeding and is fed by her who fully sits her up. There have been attempts at doing a video swallows in the past, however, the patient has not previously cooperated. She however is being sit up for all her meals and [place] [address] CONSULTATION Name: PADMINIJAIME Pee Room: [address] IN ..#: [id number] Admission: 02/28/19 Attend Phys: Vibha Dwyer MD Discharge: Date of : 67 Report #: [id number] The patient does have odd sleeping hours, usually sleeps early in the morning and sleeps through the day. She usually stays awake during the night; however, during her awake period she does have excessive sleepiness. REVIEW OF SYSTEMS: The patient does usually remain lethargic. She has had some mild swelling of lower extremities at times. She is able to provide only a limited history. Review of systems for 12 points is negative except as mentioned above. PAST MEDICAL HISTORY: Multiple sclerosis, seizures, diabetes insipidus. She is on desmopressin long-term, suprapubic catheter placement, urinary tract infections, decubitus ulcers. The patient has had a recent echocardiogram performed, which shows a left ventricular ejection fraction normal at 60-65% without elevation in right heart pressures. SOCIAL HISTORY: There is no known history of smoking, ethanol abuse or drug abuse. CURRENT MEDICATIONS LIST: Is in [employer] and this is reviewed. ALLERGIES: No known drug allergies. FAMILY HISTORY: There is no family history pertinent to the presenting complaint. PHYSICAL EXAMINATION: GENERAL: The patient is markedly drowsy, but she is arousable. When aroused, she is lethargic, but awake. VITAL SIGNS: She has a pulse of 85 and a blood pressure of 119/78, she is saturating 95%. She is not on supplemental oxygen. Her respiratory rate is 12. She is afebrile with a temperature of 36.9. HEENT: Head is normocephalic and atraumatic. There is no throat erythema. Airway is narrow around Mallampati 3. NECK: Does not show raised JVP. CHEST: Clear to auscultation. HEART: Regular, no murmur. ABDOMEN: Mildly distended, nontender. EXTREMITIES: Lower extremities show no edema, no calf tenderness. SKIN: Dry and intact. LABORATORY DATA: The patient's chest x-ray is reviewed. There are some chronic changes. The possibility of minimal increase in pulmonary vascular congestion is not ruled out; however, the chest x-ray in fact overall looks better. The chest x-ray performed towards the end of February. The patient's lab work from this morning is reviewed. There is elevation in creatinine from 0.9 at her baseline 2 days ago to 1.3 this morning. The rest of the labs are in [facility] [place] [address] CONSULTATION Name: JAIME WASHINGTON Room: [address] IN [facility]#: [id number] Admission: 02/28/19 Attend Phys: Vibha Dwyer MD Discharge: Date of : 67 Report #: [id number] are reviewed. There is a leukocytosis this morning noted. Arterial blood gas done in end of February in [facility] reviewed. Urinalysis in [facility] reviewed, repeated 3 times since admission. ASSESSMENT AND PLAN: 1. Recurrent hypotension. Firstly I am not certain if all of the blood pressure as mentioned are in fact correct. The patient's has checked her blood pressure to be up to 65 systolic. Note, however, the patient at that time was reported to be in wide awake and more awake than her usual. The blood pressure is also reported to have increased immediately after administrating Solu-Medrol. I would expect her to take some time for Solu-Medrol to take effect. Having said that, I do feel that the patient has had some episodes of hypotension, which are genuine. She has had a complicated UTI as well as decubitus ulcers and therefore the possibility of a recent sepsis is not ruled out, also as discussed below there likely is a component of adrenal insufficiency. The patient does appear to be dehydrated on the lab work this morning as well. Further, she has a history of diabetes insipidus, which will also predispose her to this. 2. Adrenal insufficiency. The patient's a.m. cortisol level is 5.2 on 03/06/2019, this is only mildly decreased as compared with the reference range. However, considering that the patient was in distress at that time, I would have in fact expect at this level to be much higher. Therefore, it does appear to me that there is a component of adrenal insufficiency, although at this point since the patient has already received Solu-Medrol it is not possible to verify by performing a cosyntropin stimulation test. If the only indication for administering steroids at this time is hypotension and steroids are not otherwise indicated for Neurology and I suggest that she switched over to hydrocortisone 100 mg IV every 8 hours and then gradually tapered down, possibly slowly attempted to taper off while watching blood pressures and then follow response and then evaluate as to whether long-term use of steroids is indicated. Note that the patient also does have a history of diabetes insipidus and further evaluation in this regard as an outpatient by an recording studio set up worker does appear to be of benefit. 3. Obstructive sleep apnea based on clinical history. She does appear to have obstructive sleep apnea, recommended BiPAP during the sleeping. If she is able to tolerate, further evaluation by an outpatient sleep study may be of benefit. 4. Seizures. Defer management to other services. Recommend be keeping magnesium and potassium on the higher side. 5. Complicated urinary tract infection/decubitus ulcers, Dr. Herron is on the case. 6. Mild renal insufficiency/dehydration. Creatinine was mildly elevated. This morning, she has received IV fluids. 7. Multiple sclerosis. See discussion as above. 8. Abdominal distention. There are significant distended loops of bowel on the x-ray performed for the chest at end of February. These in fact look better on the x-ray done that I just had done today. I recommend following up with an x-ray [address] [address] CONSULTATION Name: JAIME WASHINGTON Room: [address] IN .R.#: [id number] Admission: 02/28/19 Attend Phys: Vibha Dwyer MD Discharge: Date of : 67 Report #: [id number] of the abdomen tomorrow morning. 9. High aspiration risk. See discussion as above. The patient has previously been unable to cooperate with a video swallows. <ELECTRONICALLY SIGNED> By: Anthony Wolff MD 03/10/19 0902 [id number] Hdez MD /nt
--- NOTE | 2019-03-10 10:50 | NUR ---
Spoke with , anticipate dc midweek. Pulm following steroids, plan to taper prior to dc. Plan ambulance transport home and [facility].
[2019-03-10 12:00] VITALS: BP 163/142
--- NOTE | 2019-03-10 12:10 | NUR ---
ORDERS RECEIVED AND CHART REVIEWED. SPOUSE IN ROOM UPON MY ARRIVAL AND CONFIRMS THAT PATIENT HAS BEEN BED RIDDEN FOR 10 YEARS. HE PERFORMS ALL CARES AND USES A NATALIE LIFT FOR MOBILITY. PATIENT NEEDS HELP FEEDING ALSO. SPOUSE DOESN'T SEE ANY NEED FOR PHYSICAL THERAPY SERVICES PATIENT IS [facility]. PATIENT DC'ED FROM P.T. A RESULT. ENIO MARROQUIN, MPT
[2019-03-10 16:00] VITALS: BP 114/62; BP 80/58
--- NOTE | 2019-03-10 18:29 | NUR ---
PATINET RESTING IN BED. AT BEDSIDE. SUPRAPUBIC ATHETER. VITAL SIGNS STABLE. HOURLY ROUNDING COMPLETDFPOR PATIENT SAFETY.
[2019-03-10 20:00] VITALS: BP 126/78
[2019-03-11] VITALS (8 sets, daily range): BP systolic 98–136; BP diastolic 63–81
[2019-03-11 04:46] LABS: HEMATOCRIT 30.1 % (37.0-47.0); HEMOGLOBIN 9.6 gm/dL (12.0-15.0); MCHC 31.8 g/dL (28.0-37.0); MCV 78.5 fL (80.0-100.0); MPV 9.5 fl. (7.2-11.1); RBC 3.83 mil/uL (4.20-5.00); WBC 12.3 thou/uL (4.0-11.0)
[2019-03-11 04:52] LABS: ALBUMIN 2.3 g/dL (3.4-5.0); CALCIUM 9.1 mg/dL (8.5-10.1); CREATININE 1.1 mg/dL (0.6-1.3); PHOSPHORUS* 2.7 mg/dL (2.5-4.9); POTASSIUM 4.2 mmol/L (3.5-5.1)
--- NOTE | 2019-03-11 06:59 | NUR ---
VSS. SEE MAR. SEE CHARTING. FALL PRECATUIONS IN PLACE. HOURLY ROUNDING FOR SAFETY.
--- NOTE | 2019-03-11 11:24 | NUR ---
INITAL ASSESSMENT COMPLETED. VSS. Q2 TURNS FOR SKIN INTEGRITY. TRACING SR ON MONITOR. PT DENIES PAIN. FAMILY AT BEDSIDE. REFER ROBERT COMPUTER CHARTING FOR FURTHER DETAILS. HOURLY ROUNDING AND FALL PRECAUTIONS IN PLACE FOR PT SAFETY. CLWR.
[2019-03-11 12:54] LABS: % SATURATION 18 % (20-39); IRON 45 ug/dL (50-175)
[2019-03-12 00:03] VITALS: BP 76/47
[2019-03-12 04:00] VITALS: BP 138/78
[2019-03-12 05:47] LABS: ABSOLUTE BASOPHILS 0.1 thou/uL (0.0-0.2); ABSOLUTE LYMPHOCYTES 3.7 thou/uL (0.8-5.3); ABSOLUTE MONOCYTES 0.8 thou/uL (0.0-1.2); ABSOLUTE NEUTROPHILS 8.2 thou/uL (1.6-8.1); BASOPHILS 0.5 %; EOSINOPHILS 0.2 %; HEMATOCRIT 30.2 % (37.0-47.0); HEMOGLOBIN 9.4 gm/dL (12.0-15.0); LYMPHOCYTES 28.8 %; MCH 24.5 pg (26.0-34.0); MCHC 31.3 g/dL (28.0-37.0); MCV 78.5 fL (80.0-100.0); MONOCYTES 5.9 %; MPV 9.4 fl. (7.2-11.1); NUCLEATED RBCS 0 /100WBC; PLATELET COUNT* 246 thou/uL (150-400); POLYS 64.6 %; RBC 3.85 mil/uL (4.20-5.00); WBC 12.8 thou/uL (4.0-11.0)
[2019-03-12 06:06] LABS: CALCIUM 8.8 mg/dL (8.5-10.1); CREATININE 0.9 mg/dL (0.6-1.3); MAGNESIUM 1.7 mg/dL (1.8-2.4); POTASSIUM 4.5 mmol/L (3.5-5.1)
[2019-03-12 06:30] LABS: PLATELET ESTIMATE ADEQUATE; TARGET CELLS 1+
[2019-03-12 06:31] LABS: HYPOCHROMASIA 2+; MICROCYTES 1+
[2019-03-12 06:32] LABS: ANISOCYTOSIS 2+
--- NOTE | 2019-03-12 06:51 | NUR ---
PT IS ABLE TO COMMUNICATE HER NEEDS TO STAFF WITH SOME DIFFICULTY; SHE HAS SOME EXPRESSIVE APHASIA AND USUALLY REQUIRES SOME EXTRA TIME TO RESPOND. SHE HAS DENIED THE NEED FOR PAIN MEDICATION UP TO THIS TIME. SUPRAPUBIC CATH IS PATENT. SEIZURE PRECAUTIONS MAINTAINED. PT'S BP HAS BEEN SOFT AT TIMES, MD IS AWARE.
[2019-03-12 07:45] VITALS: BP 141/80
--- NOTE | 2019-03-12 11:02 | NUR ---
PT A/O. TELE TRACKING SR AND ALL VSS ON ROOM AIR. DENIES CP, SOA. PT AND (DPOA) REFUSING TO TAKE KEPPRA, THEY BELIEVE IT IS CONTRIBUTING TO HER FREQUENT EPISODES OF HYPOTENSION. SZ PRECAUTIONS IN PLACE. FAMILY AT BEDSIDE. EDUCATED ON SAFETY AND PLAN OF CARE. PLEASE SEE ASSESSMENT FOR ADDITIONAL INFORMATION. WILL CONT TO MONITOR
[2019-03-12 11:30] VITALS: BP 137/74
--- NOTE | 2019-03-12 15:20 | NUR ---
WOUND NURSE- PATIENT NOW ON TELEMETRY - HAD NOTED POSSIBLE DISCHARGE TODAY, BUT NOT PLANNED - MAYBE IN NEXT DAY OR TWO. AND SON AT BEDSIDE. PATIETN APPEARS MORE ALERT, BUT REMAINS COMPLETELY NON-VERBAL AND DOES NOT APPEAR TO RESPOND TO ANY COMMUNICATION. SMALL STAGE 4 PRESSURE ULCER TO LEFT BUTTOCKS CONTINUES TO SLOWLY IMPROVE, NOW 1.5 X 1.4 X 0.1 CM, WITH LESS HYPERGRANULATION TISSUE. SURROUNDING SKIN SLIGHTLY MACERATED, AND HAS SIGNIFICANT SCARRING. SMALL ADJACENT SKIN TEARS HEALING WELL. SKIN ON BUTTOCKS AND COCCYX OTHERWISE INTACT WITH NO BREAKDOWN. HEELS INTACT, NO ERYTHEMA.
[2019-03-12 15:33] VITALS: BP 121/68
[2019-03-12 20:35] VITALS: BP 140/79
[2019-03-13] VITALS: BP 117/70
[2019-03-13 04:00] VITALS: BP 140/66
[2019-03-13 04:49] LABS: CALCIUM 8.8 mg/dL (8.5-10.1); POTASSIUM 4.7 mmol/L (3.5-5.1)
--- NOTE | 2019-03-13 07:45 | NUR ---
PT IS ABLE TO COMMUNICATE HER NEEDS TO STAFF WITH MINOR DIFFICULTY; SHE REQUIRES SOME EXTRA TIME TO RESPOND SHE HAS A LONG HISTORY OF MS. SHE HAS DENIED THE NEED FOR PAIN MEDICATION UP TO THIS TIME. SUPRAPUBIC CATH IS PATENT UP TO THIS TIME. POSSIBLE DISCHARGE LATER TODAY.
[2019-03-13 08:00] VITALS: BP 147/75
[2019-03-13 12:23] VITALS: BP 102/54
[2019-03-13 15:59] VITALS: BP 128/78
[2019-03-13 20:00] VITALS: BP 143/66
--- NOTE | 2019-03-13 20:02 | NUR ---
RECEIVED REPORT FROM REUBEN CHAWLA. ASSUMED CARE OF PT AROUND 0730. PT AWAKE BUT DROWSY THIS SHIFT. APPEARS MOSTLY NON-VERBAL. VSS. MEDS PER EMAR. AT BEDSIDE ASSISTING WITH CARES. SUPRAPUBIC CATHETER IN PLACE AND PATENT. PT DENIES PAIN THIS SHIFT AND DOES NOT APPEAR TO BE IN ANY DISCOMFORT. RIGHT IJ INTACT. DRESSING TO LEFT BUTTOCKS REAMINS INTACT. TURNS Q2HRS. PT MAY DC TOMORROW. PT RESTING IN BED, FAMILY REMAINING IN ROOM. FALL PRECAUTIONS IN PLACE. CALL LIGHT IS WITHIN REACH, HOURLY ROUNDING PERFORMED.
[2019-03-14 04:00] VITALS: BP 163/93
--- NOTE | 2019-03-14 06:42 | NUR ---
ASSUMED PATIENT CARE AT 1900. PATIENT ALERT TO SELF. TURNED [id number]. BATH GIVEN THIS AM. PATIENT ABLE TO HAVE SEVERAL BOWEL MOVEMENTS THROUGH THE NIGHT AFTER ADMINISTRATION OF DUCOLAX SUPPOSITORY. BP AND MAP REMAINED STABLE THROUGH THIS SHIFT. GINNER HELPER AND HOURLY ROUNDING COMPLETED CHARTED.
[2019-03-14 07:30] VITALS: BP 133/80
[2019-03-14] MEDS ORDERED: CORTEF 20 MG TA20 M1 PO (08:25)
[2019-03-14] MEDS ORDERED: MIDODRINE HCL 55 M1 PO (08:25)
--- NOTE | 2019-03-14 10:34 | NUR ---
CLASSIFICATION CASE MANAGER INFORMED THAT PATIENT IS READY TO D/C HOME TODAY WITH HH. D/C BILLING CHECKER SPOKE TO THE PATIENT'S SPOUSE AND HE INFORMS THAT HE DOES NOT WANT HH. D/C BILLING CHECKER INFORMED THE PATIENT'S SPOUSE OF THE PHYSICIANS RECOMMENDATIONS AND BENEFITS OF HH. PATIENT'S SPOUSE CONTINUES TO DECLINE. D/C BILLING CHECKER ARRANGED [facility] TRANSPORT FOR THE PATIENT FOR 1400 PER PATIENT'S SPOUSE REQUEST. D/C BILLING CHECKER INFORMED THE RN IN-CHARGE OF THE PATIENT OF THE PATIENT'S TIME OF TRANSPORT AND SPOUSE DECLINING HH. RN IN AGREEMENT. CM WILL REMAIN AVAILABLE TO ASSIST AND FOLLOW NEEDED.
[2019-03-14 11:10] VITALS: BP 127/81
[2019-03-14 11:27] VITALS: BP 127/81
[2019-03-14 11:46] VITALS: BP 129/88
--- NOTE | 2019-03-14 12:32 | NUR ---
ASSUMED PT CARE AT 0800, ALERT, AWAKE, BEDREST. O2 SAT 90'S RA. TRACING SR IN TELE. DENIES PAIN. ON BEDSIDE. PT HAS SUPRAPUBIC CATH DRAINING WELL. PICC LINE INTACT. PT HAS BM TODAY. OPEN SORE NOTED C/D/I. PT ON NECTAR THICK, MECHANICAL ALTERED CHOP DIET. FOR DISCHARGE TODAY. VSS, AM ASSESSMENT CHARTED. MEDS GIVEN PER MAR. Q2 TURN. WILL CONTINUE TO MONITOR.
--- NOTE | 2019-03-14 14:36 | NUR ---
DISCHARGED PLAN DISCUSSED WITH . MEDICATION/PACKET GIVEN. WOUND CARE DONE, D/C/I. DISCHARGE PICTURE TAKEN. IV, TELE REMOVED. ALL BELONGS PACKED AND CHECKED. REMINDED TO FOLLOW UP WITH ENDOCRINOLOGY,PCP. LEFT THE UNIT AT 1400 VIA [facility] TRAN[facility].
== END 2019-03-14 14:11 | disposition home or self-care (01) | DRG 871 ==
LOC: M.ERS 04:57 → M.2W 07:15 → M.ICU 07:15 → M.TBA-ER 07:15 → M.ICU 13:36 → M.2W 03-06 10:25 → M.ICU 03-08 22:35 → M.2W 03-09 21:55
PROVIDERS: Emergency Medicine Emergency Medical Services; Family Medicine; Internal Medicine; Internal Medicine Critical Care Medicine; Specialist; ADMIT Internal Medicine
PROC: B2141ZZ Fluoroscopy of Right Heart using Low Osmolar Contrast (ICD-10-PCS; principal; 2019-02-28)
PROC: 02H633Z Insertion of Infusion Device into Right Atrium, Percutaneous Approach (ICD-10-PCS; principal; 2019-02-28)
PROC: B244ZZZ Ultrasonography of Right Heart (ICD-10-PCS; principal; 2019-02-28)
DX: A41.9 Sepsis, unspecified organism (principal); G93.41 Metabolic encephalopathy; G82.50 Quadriplegia, unspecified; R65.21 Severe sepsis with septic shock; J18.9 Pneumonia, unspecified organism; N39.0 Urinary tract infection, site not specified; E23.2 Diabetes insipidus; E27.40 Unspecified adrenocortical insufficiency; E66.2 Morbid (severe) obesity with alveolar hypoventilation; E87.0 Hyperosmolality and hypernatremia; E03.9 Hypothyroidism, unspecified; E83.42 Hypomagnesemia; D63.8 Anemia in other chronic diseases classified elsewhere; D50.9 Iron deficiency anemia, unspecified; K59.00 Constipation, unspecified; G40.909 Epilepsy, unspecified, not intractable, without status epilepticus; B96.89 Other specified bacterial agents as the cause of diseases classified elsewhere; G35 Multiple sclerosis; E87.8 Other disorders of electrolyte and fluid balance, not elsewhere classified; Z98.891 History of uterine scar from previous surgery; E86.0 Dehydration; N28.9 Disorder of kidney and ureter, unspecified; R14.0 Abdominal distension (gaseous); L89.309 Pressure ulcer of unspecified buttock, unspecified stage; Z87.891 Personal history of nicotine dependence; Z74.01 Bed confinement status; Z68.30 Body mass index [BMI] 30.0-30.9, adult